=== PATIENT | female | born 2000 | race Caucasian/White ===

== ENCOUNTER 2021-02-27 21:48 | Emergency (ER) | payer OTHER, SELFPAY ==
--- NOTE | 2021-02-27 | ECG_ITS ---
Test Reason : CHEST PAIN Blood Pressure : / mmHG Vent. Rate : 080 BPM Atrial Rate : 080 BPM P-R Int : 154 ms QRS Dur : 078 ms QT Int : 366 ms P-R-T Axes : 050 016 008 degrees QTc Int : 422 ms Normal sinus rhythm Normal ECG No previous ECGs available Referred By: Generic ED Physician Electronically Signed By:RENA DREW
--- NOTE | ~2021-02-27 | XR_ITS ---
EXAMINATION: XR CHEST CLINICAL INFORMATION: Shortness of breath COMPARISON: None TECHNIQUE: Frontal view of the chest was obtained. FINDINGS: No significant abnormality is noted involving the heart, lungs, mediastinum, bony thorax or soft tissues. XR/XR chest 1V IMPRESSION: Unremarkable examination.
[2021-02-27 22:18] VITALS: BP 123/68; PULSE 83; RESP 18; TEMP 36.9; O2SAT 98; BMI 33.6
[2021-02-28 00:26] LABS: UPreg QC Valid YES; Urine Pregnancy NEGATIVE (NEGATIVE)
--- NOTE | 2021-02-28 00:32 | ED_ITS ---
HPI - URI/Sore Throat General Chief Complaint: Chest Pain Stated Complaint: SOB,CP, Covid+ Time Seen by Provider: 02/27/21 22:53 Source: patient Mode of arrival: ambulatory History of Present Illness HPI Narrative: This is a 20-year-old female with history of lupus and started on steroids 02/20 for a ?flare?. Patient now presents after developing ?COVID like symptoms on Tuesday? that included chest pain and shortness of breath, and then being evaluated at [facility] on Tuesday in found to be COVID-19 positive at that time. As per the patient lab work was done and patient was discharged from [facility] with personal oximeter and instructed to return to the emergency room if it was to fall below 94%. Patient states that she is unable to take NSAIDs due to her kidney function from lupus and that she has been consistently taking Tylenol for this chest pain/shortness of breath that she has been experiencing. Patient states that this has not changed in Tuesday and that the pain worsens with deep inspiration and movement. Patient states that today she checked her oximeter and that showed 93%, she became concerned and came into the emergency department. Related Data Allergies Allergy/AdvReac Type Severity Reaction Status Date / Time banana [BANANA] Allergy Intermediate ITCHING Unverified 08/07/20 16:38 tree nut [TREE NUT] Allergy Intermediate ITCHING Unverified 08/07/20 16:38 Review of Systems Review of Systems: Pertinent positives and negatives as stated in HPI 10 point review of systems is otherwise negative. PMFSH Past Medical History Source: nursing notes reviewed Social History Social History Advance Directives: No Advance Directives Information Provided: No Physical Exam Vital Signs: Vital Signs: Last Vital Signs Temp 98.4 F 02/27/21 22:18 Pulse 83 02/27/21 22:18 Resp 18 02/27/21 22:18 BP 123/68 02/27/21 22:18 Pulse Ox 98 02/27/21 22:18 Body Mass Index 33.6 VITAL SIGNS: Reviewed. GENERAL: Well developed, well nourished, in no acute distress. HEAD: Normocephalic/atraumatic, EYES: PERRLA, EOMI NOSE: Nares patent bilateral OROPHARYNX: no oral lesions noted, posterior pharynx clear NECK: Supple, no adenopathy LUNGS: Normal breath sounds. No adventitious sounds or accessory muscle use. SpO2<98> CARDIOVASCULAR: Regular rate and rhythm without noted murmurs ABDOMEN: Soft, non-tender, non-distended with bowel sounds. NEUROLOGIC: Alert and oriented x 4. Course Course Course Narrative: This is a 20-year-old female who is calm, without tachypnea or hypoxia (98%). Patient's symptoms have not changed since Tuesday and the presentation is consistent with COVID-19 symptoms with likely pleurisy. Will obtain chest x-ray to rule out pneumonia. Low clinical suspicion for PE and doubt cardiac etiology. The plan was discussed with the patient at bedside and she was reassured that it is possible that the initial reading that she got was erroneous. Through review of all investigations is without acute findings and patient continues to saturate within normal limits without evidence of tachypnea or hypoxia. Close informed by nursing at approximately 1:35 a.m. the patient patient had left. MDM - URI/Sore Throat Lab Data Labs: Lab Results 02/28/21 Range/Units 00:16 Urine Test NEGATIVE (NEGATIVE) Discharge Plan Discharge Clinical Impression: Lab test positive for detection of COVID-19 virus, Acute viral syndrome, Pleurisy Patient Disposition: Elopement Interventions: ED Discharge Assessment Last Done: 02/28/21 01:40 Discharge Date/Time: 02/28/21 01:40
== END 2021-02-28 01:40 | disposition left against medical advice (07) ==
PROVIDERS: Emergency Provider Student in an Organized Health Care Education/Training Program; PCP Pediatrics Adolescent Medicine
DX: B34.9 Viral infection, unspecified (principal); R06.02 Shortness of breath; R09.1 Pleurisy
CPT/HCPCS: 71045; 81025; 93005; 99283

== ENCOUNTER 2021-10-03 21:34 | Emergency (ER) | payer OTHER, SELFPAY ==
--- NOTE | ~2021-10-03 | US_ITS ---
EXAMINATION: ULTRASOUND OF THE PELVIS CLINICAL INFORMATION: Left lower quadrant and right lower quadrant pain. Vaginal bleeding.. COMPARISON: 05/27/2015. TECHNIQUE: Transabdominal and transvaginal pelvic ultrasound. Doppler evaluation with spectral analysis was performed. A transvaginal study was performed in addition to the transabdominal study which did not yield an adequate examination of the uterus and ovaries due to superimposed distended gas-filled loops of bowel. FINDINGS: The uterus is normal in size and appearance, measuring 7.4 x 3.6 x 6.3 cm longitudinally, anteroposteriorly and transversely. The endometrial stripe thickness is normal, measuring 0.4 cm in thickness. No focal myometrial mass is seen. The ovaries bilaterally are visualized and appear normal, with the right ovary measuring 2.5 x 1.5 x 2.1 cm and the left ovary measuring 2.3 x 0.9 x 1.9 cm. There are normal arterial and venous spectral waveforms bilaterally. No adnexal mass or free fluid collection seen. US/US pelvic and transvaginal IMPRESSION: No evidence of active ovarian torsion at this time. Normal pelvic ultrasound..
--- NOTE | ~2021-10-03 | US_ITS ---
EXAMINATION: ULTRASOUND OF THE PELVIS CLINICAL INFORMATION: Left lower quadrant and right lower quadrant pain. Vaginal bleeding.. COMPARISON: 05/27/2015. TECHNIQUE: Transabdominal and transvaginal pelvic ultrasound. Doppler evaluation with spectral analysis was performed. A transvaginal study was performed in addition to the transabdominal study which did not yield an adequate examination of the uterus and ovaries due to superimposed distended gas-filled loops of bowel. FINDINGS: The uterus is normal in size and appearance, measuring 7.4 x 3.6 x 6.3 cm longitudinally, anteroposteriorly and transversely. The endometrial stripe thickness is normal, measuring 0.4 cm in thickness. No focal myometrial mass is seen. The ovaries bilaterally are visualized and appear normal, with the right ovary measuring 2.5 x 1.5 x 2.1 cm and the left ovary measuring 2.3 x 0.9 x 1.9 cm. There are normal arterial and venous spectral waveforms bilaterally. No adnexal mass or free fluid collection seen. US/US pelvic ovarian doppler IMPRESSION: No evidence of active ovarian torsion at this time. Normal pelvic ultrasound..
[2021-10-03 21:36] VITALS: BP 128/73; PULSE 80; RESP 18; TEMP 36.1; O2SAT 99; BMI 33.6
--- NOTE | 2021-10-03 22:35 | ED.FEMALEGU ---
HPI - Female Genitourinary General Chief complaint: Vaginal Bleeding <JAYDEN Fragoso Last Filed: 10/04/21 01:38> Stated complaint: Vaginal Bleeding/Nausea <JAYDEN Fragoso Last Filed: 10/04/21 01:38> Time Seen by Provider: 10/03/21 22:35 <JAYDEN Fragoso Last Filed: 10/04/21 01:38> Source: patient <JAYDEN Fragoso Last Filed: 10/04/21 01:38> Mode of arrival: ambulatory <JAYDEN Fragoso Last Filed: 10/04/21 01:38> Limitations: no limitations <JAYDEN Fragoso Last Filed: 10/04/21 01:38> History of Present Illness HPI Narrative: 21-year-old female no known medical history presents to the emergency department with heavy vaginal bleeding, lower back pain, nausea and lower abdominal cramping that started at 3:00 a.m. today. Patient states that she is passing thick dark black clots, and tissue . Patient also mentions that she is having vaginal discharge, that is thick and gooey and has a foul odor. She states she has used 10 pads today. She complains of lower abdominal cramping that is constant and severe in nature. She also reports associated nausea. She is on an oral contraceptive. She does not believe that she is at this time, however she is sexually active and doesn't wear protection. Her last menstrual period was on September 12, 2021, she states she has regular periods and she is expecting her period or October 13, 2021. Patient denies difficulty with urination, fevers, chills, vomiting, diarrhea or, chest pain, shortness of breath, recent sick contacts. <JAYDEN Fragoso Last Filed: 10/04/21 01:38> MD elicited complaint: vaginal bleeding (thick dark red clots) and vaginal discharge ( gooey foul smelling) <JAYDEN Fragoso Last Filed: 10/04/21 01:38> Onset (ago): day(s) (1) <JAYDEN Fragoso Last Filed: 10/04/21 01:38> Location of symptoms: suprapubic, LLQ and RLQ <JAYDEN Fragoso - Last Filed: 10/04/21 01:38> Severity: severe <JAYDEN Fragoso - Last Filed: 10/04/21 01:38> Severity scale (1-10): 10 <JAYDEN Fragoso - Last Filed: 10/04/21 01:38> Quality of pain: cramping <JAYDEN Fragoso - Last Filed: 10/04/21 01:38> Consistency: constant <JAYDEN Fragoso - Last Filed: 10/04/21 01:38> Vaginal discharge: yellow, creamy and vaginal odor <JAYDEN Fragoso - Last Filed: 10/04/21 01:38> Vaginal bleeding: heavy, dark red, clots and # pads per day (10) <JAYDEN Fragoso - Last Filed: 10/04/21 01:38> Urinary symptoms: Flank Pain (bilateral) <JAYDEN Fragoso - Last Filed: 10/04/21 01:38> Exacerbating factors: none <JAYDEN Fragoso - Last Filed: 10/04/21 01:38> Relieving factors: none <JAYDEN Fragoso - Last Filed: 10/04/21 01:38> Associated symptoms: abdominal pain (RLQ,LLQ CRAMPING ) and back pain (bilateral flank) <JAYDEN Fragoso - Last Filed: 10/04/21 01:38> Treatment prior to arrival: none <JAYDEN Fragoso - Last Filed: 10/04/21 01:38> Sexual activity: Yes <JAYDEN Fragoso - Last Filed: 10/04/21 01:38> Possible : unsure if <JAYDEN Fragoso - Last Filed: 10/04/21 01:38> Date of Last Menstrual Period: 09/12/21 <JAYDEN Fragoso - Last Filed: 10/04/21 01:38> Related Data : 1 <JAYDEN Fragoso Last Filed: 10/04/21 01:38> Para: 1 <JAYDEN Fragoso Last Filed: 10/04/21 01:38> Total number of abortions (spontaneous and elective): 0 <JAYDEN Fragoso Last Filed: 10/04/21 01:38> Home medications: Previous Rx's Medication Instructions Recorded ondansetron 4 mg disintegrating 4 mg PO Q8-12H PRN #7 tab 10/04/21 tablet <JAYDEN Fragoso Last Filed: 10/04/21 01:38> Allergies/Adverse reactions: Allergies Allergy/AdvReac Type Severity Reaction Status Date / Time banana [BANANA] Allergy Intermediate ITCHING Unverified 08/07/20 16:38 tree nut [TREE NUT] Allergy Intermediate ITCHING Unverified 08/07/20 16:38 <JAYDEN Fragoso Last Filed: 10/04/21 01:38> Review of Systems Review of Systems: Constitutional : No Fever, No Chills ENT/Mouth : No sore throat, No Rhinorrhea Eyes: No Eye Pain, No Redness Cardiovascular : No Chest Pain, No SOB Respiratory : No Cough, No Sputum, No Wheezing Gastrointestinal : positive Nausea, No Vomiting, No Diarrhea, positive abdominal pain, Genitourinary : positive irregular bleeding, No Dysuria, No Urinary Frequency, + pelvic pain Musculoskeletal : No Myalgias Skin : No rash Neuro : No Weakness, No Headache Psych : No Anxiety/Panic, No Depression Heme/Lymph: No bruising, No Lymphadenopathy Endocrine : No Polyuria, No Polydipsia All other systems reviewed and are negative <JAYDEN Fragoso Last Filed: 10/04/21 01:38> FOR[facility]LY [facility], [facility] Past Medical History Attestation statement: The following information was validated with the patient. <JAYDEN Fragoso Last Filed: 10/04/21 01:38> Source: old records reviewed and nursing notes reviewed <JAYDEN Fragoso Last Filed: 10/04/21 01:38> : 1 <JAYDEN Fragoso Last Filed: 10/04/21 01:38> Para: 1 <JAYDEN Fragoso - Last Filed: 10/04/21 01:38> Total number of abortions (spontaneous and elective): 0 <JAYDEN Fragoso - Last Filed: 10/04/21 01:38> Date of Last Menstrual Period: 09/12/21 <JAYDEN Fragoso - Last Filed: 10/04/21 01:38> Social History Social History: Social History Advance Directives: No Advance Directives Information Provided: No <JAYDEN Fragoso - Last Filed: 10/04/21 01:38> Physical Exam Vital Signs: Vital Signs: Last Vital Signs Temp 97.8 F 10/03/21 23:05 Pulse 71 10/03/21 23:05 Resp 14 10/03/21 23:05 BP 120/78 10/03/21 23:05 Pulse Ox 99 10/03/21 23:05 Body Mass Index 33.6 <JAYDEN Fragoso - Last Filed: 10/04/21 01:38> Vital Signs: Last Vital Signs Temp 97.8 F 10/03/21 23:05 Pulse 71 10/03/21 23:05 Resp 14 10/03/21 23:05 BP 120/78 10/03/21 23:05 Pulse Ox 99 10/03/21 23:05 Body Mass Index 33.6 <JAYDEN Benítez - Last Filed: 10/04/21 01:48> Appearance: Alert.? Oriented X3.? No acute distress.? Eyes: Pupils equal, round and reactive to light.? ENT: Pharynx normal.? Neck: Normal inspection.? Neck supple.? CVS: Normal heart rate and rhythm.? Pulses normal.? Respiratory: No respiratory distress.? Breath sounds normal.? Abdomen: Soft and + tenderness to RLQ,LLQ and suprapubic region.? Pelvic: + significant dark red bleeding with clots coming from the cervical os, cervical os appears closed. Severe discomfort with pelvic exam. Bimanual exam reveals significant bilateral adnexal tenderness. Skin: Skin warm and dry.? Normal skin color.? Normal skin turgor.? Extremities: No lower extremity edema.? No calf ttp Neuro: Oriented X 3.? No motor deficit.? No sensory deficit. <JAYDEN Fragoso - Last Filed: 10/04/21 01:38> Course Course Course Narrative: Patient seen and examined, agree with assessment and plan. <JAYDEN Benítez - Last Filed: 10/04/21 01:48> Reevaluation(s) Reevaluation #1: A pelvic exam was done with adal Berger at the bedside as a field account manager. There was significant dark red bleeding with clots coming from the cervical os, cervical os appears closed. Severe discomfort with pelvic exam. Bimanual exam reveals significant bilateral adnexal tenderness. <JAYDEN Fragoso - Last Filed: 10/04/21 01:38> Time: 23:47 <JAYDEN Fragoso - Last Filed: 10/04/21 01:38> Reevaluation #2: Labs show no acute infection, hemoglobin and hematocrit within normal limits, platelets are noted to be slightly elevated 412. Serum hCG negative, no electrolyte abnormalities. UA with no infection. Trichomonas and yeast negative <JAYDEN Fragoso - Last Filed: 10/04/21 01:38> Time: 01:28 <JAYDEN Fragoso - Last Filed: 10/04/21 01:38> Reevaluation #3: US negative. This is likely early menses, menorrhagia. Will repeat a CBC to make sure her hemoglobin and hematocrit are stable prior to discharging patient home. <JAYDEN Fragoso - Last Filed: 10/04/21 01:38> Time: 01:29 <JAYDEN Fragoso - Last Filed: 10/04/21 01:38> Additional Reevaluation(s): 0237 Sign-out will be given to Dr. Molina pending CBC and coags <JAYDEN Fragoso - Last Filed: 10/04/21 01:38> MDM - Female Genitourinary MDM Narrative Medical decision making narrative: 2229 21-year-old female no known pmhx presents to the ED with heavy vaginal bleeding dark red clots, vaginal discharge thick yellow creamy foul smelling, bilateral flank pain, nausea and severe lower abdominal cramping that started at 3:00 a.m. today. She has gone through 10 pads today. She does not believe she is , she states she is on oral contraceptives, however, she is sexually active and does not use protection. No history of STDs. Denies fevers, chills, weakness, difficulties with urination, anorexia. Upon physical examination patient is resting comfortably in the stretcher in no acute distress. S1-S2 appreciated free of murmurs. Lungs are clear bilaterally. Abdomen is soft, nondistended, and tender to palpation in the right lower quadrant, right left lower quadrant and suprapubic region. No focal neuro deficits. A pelvic exam will be done. Plan at this time obtain basic labs, UA, U-perg, mag, HCG, NG CT, BV, trich. <JAYDEN Fragoso - Last Filed: 10/04/21 01:38> Lab Data Result diagrams: : 10/03/21 23:23 10/03/21 23:58 <JAYDEN Fragoso - Last Filed: 10/04/21 01:38> Labs: Lab Results 10/03/21 10/03/21 10/03/21 Range/Units 23:23 23:58 23:58 WBC 11.1 H (4.8-10.8) X10*3/uL RBC 4.82 (4.20-5.50) X10*6/uL Hgb 13.6 (12.0-16.0) g/dl Hct 40.0 (37.0-47.0) % MCV 83.0 (80.0-98.0) fL MCH 28.2 (27.0-33.0) pg MCHC 34.0 (31.0-35.0) g/dl RDW 13.7 (11.0-16.0) % Plt Count 412 H (160-400) X10*3/uL MPV 10.1 (9.4-12.3) fL Immature Gran % (Auto) 0.4 (0.0-0.4) % Neut % (Auto) 56.3 (45-73) % Lymph % (Auto) 34.5 (20-40) % [place] % (Auto) 6.6 (2-11) % Eos % (Auto) 1.7 (0-4) % Baso % (Auto) 0.5 (0-2) % Lymph # (Auto) 3.8 (1.2-4.9) X10*3/uL [place] # (Auto) 0.7 (0.1-1.2) X10*3/uL Eos # (Auto) 0.2 (0.0-0.4) X10*3/uL Baso # (Auto) 0.1 (0.0-0.2) X10*3/uL Abs Immat Gran (auto) 0.04 H (0.00-0.03) X10*3/uL Absolute Neuts (auto) 6.3 (2.0-8.3) x10*3/uL Absolute Nucleated RBC 0.000 (0.0-0.012) X10*3/uL Nucleated RBC % (auto) 0.0 (0.0-0.2) /100WBC Sodium 137 (135-145) mmol/L Potassium 4.4 (3.3-5.1) mmol/L Chloride 109 H (96-108) mmol/L Carbon Dioxide 19 L (22-29) mmol/L Anion Gap 13 (12-20) BUN 17 H (9-16) mg/dL Creatinine 0.83 (0.5-1.4) mg/dL Estim Creat Clear Calc 109.7 Estimated GFR > 60 Random Glucose 87 (60-115) mg/dL Calcium 9.6 (8.4-10.2) mg/dL Magnesium 1.9 (1.6-2.6) mg/dL Total Bilirubin 0.2 (0.0-1.0) mg/dL AST 25 (5-31) U/L ALT 14 (0-31) U/L Alkaline Phosphatase 100 (39-117) U/L Total Protein 7.5 (6.5-8.0) g/dL Albumin 4.4 (3.5-5.0) g/dL Beta HCG, Quant < 2 mIU/mL Urine Color YELLOW Urine Appearance CLEAR Urine pH 6.0 (5.0-8.0) Ur Specific [place] >= 1.030 H (1.005-1.025) Urine Protein 1+ H (NEG-TRACE) MG/DL Urine Glucose (UA) NEG (NEG) MG/DL Urine Ketones NEG (NEG) MG/DL Urine Blood 2+ H (NEG) Urine Nitrite NEG (NEG) Ur Leukocyte Esterase NEG (NEG) Urine RBC 15-29 H (0) /HPF Urine WBC 1-4 (0-4) /HPF Ur Squamous Epith Cells 1+ /LPF Urine Bacteria 1+ /LPF Urine Test (NEGATIVE) Blood Type 10/03/21 10/04/21 Range/Units 23:58 00:24 WBC (4.8-10.8) X10*3/uL RBC (4.20-5.50) X10*6/uL Hgb (12.0-16.0) g/dl Hct (37.0-47.0) % MCV (80.0-98.0) fL MCH (27.0-33.0) pg MCHC (31.0-35.0) g/dl RDW (11.0-16.0) % Plt Count (160-400) X10*3/uL MPV (9.4-12.3) fL Immature Gran % (Auto) (0.0-0.4) % Neut % (Auto) (45-73) % Lymph % (Auto) (20-40) % [place] % (Auto) (2-11) % Eos % (Auto) (0-4) % Baso % (Auto) (0-2) % Lymph # (Auto) (1.2-4.9) X10*3/uL [place] # (Auto) (0.1-1.2) X10*3/uL Eos # (Auto) (0.0-0.4) X10*3/uL Baso # (Auto) (0.0-0.2) X10*3/uL Abs Immat Gran (auto) (0.00-0.03) X10*3/uL Absolute Neuts (auto) (2.0-8.3) x10*3/uL Absolute Nucleated RBC (0.0-0.012) X10*3/uL Nucleated RBC % (auto) (0.0-0.2) /100WBC Sodium (135-145) mmol/L Potassium (3.3-5.1) mmol/L Chloride (96-108) mmol/L Carbon Dioxide (22-29) mmol/L Anion Gap (12-20) BUN (9-16) mg/dL Creatinine (0.5-1.4) mg/dL Estim Creat Clear Calc Estimated GFR Random Glucose (60-115) mg/dL Calcium (8.4-10.2) mg/dL Magnesium (1.6-2.6) mg/dL Total Bilirubin (0.0-1.0) mg/dL AST (5-31) U/L ALT (0-31) U/L Alkaline Phosphatase (39-117) U/L Total Protein (6.5-8.0) g/dL Albumin (3.5-5.0) g/dL Beta HCG, Quant mIU/mL Urine Color Urine Appearance Urine pH (5.0-8.0) Ur Specific [place] (1.005-1.025) Urine Protein (NEG-TRACE) MG/DL Urine Glucose (UA) (NEG) MG/DL Urine Ketones (NEG) MG/DL Urine Blood (NEG) Urine Nitrite (NEG) Ur Leukocyte Esterase (NEG) Urine RBC (0) /HPF Urine WBC (0-4) /HPF Ur Squamous Epith Cells /LPF Urine Bacteria /LPF Urine Test NEGATIVE (NEGATIVE) Blood Type A Positive <JAYDEN Fragoso - Last Filed: 10/04/21 01:38> Lab Results 10/03/21 10/03/21 10/03/21 Range/Units 23:23 23:58 23:58 WBC 11.1 H (4.8-10.8) X10*3/uL RBC 4.82 (4.20-5.50) X10*6/uL Hgb 13.6 (12.0-16.0) g/dl Hct 40.0 (37.0-47.0) % MCV 83.0 (80.0-98.0) fL MCH 28.2 (27.0-33.0) pg MCHC 34.0 (31.0-35.0) g/dl RDW 13.7 (11.0-16.0) % Plt Count 412 H (160-400) X10*3/uL MPV 10.1 (9.4-12.3) fL Immature Gran % (Auto) 0.4 (0.0-0.4) % Neut % (Auto) 56.3 (45-73) % Lymph % (Auto) 34.5 (20-40) % [place] % (Auto) 6.6 (2-11) % Eos % (Auto) 1.7 (0-4) % Baso % (Auto) 0.5 (0-2) % Lymph # (Auto) 3.8 (1.2-4.9) X10*3/uL [place] # (Auto) 0.7 (0.1-1.2) X10*3/uL Eos # (Auto) 0.2 (0.0-0.4) X10*3/uL Baso # (Auto) 0.1 (0.0-0.2) X10*3/uL Abs Immat Gran (auto) 0.04 H (0.00-0.03) X10*3/uL Absolute Neuts (auto) 6.3 (2.0-8.3) x10*3/uL Absolute Nucleated RBC 0.000 (0.0-0.012) X10*3/uL Nucleated RBC % (auto) 0.0 (0.0-0.2) /100WBC Sodium 137 (135-145) mmol/L Potassium 4.4 (3.3-5.1) mmol/L Chloride 109 H (96-108) mmol/L Carbon Dioxide 19 L (22-29) mmol/L Anion Gap 13 (12-20) BUN 17 H (9-16) mg/dL Creatinine 0.83 (0.5-1.4) mg/dL Estim Creat Clear Calc 109.7 Estimated GFR > 60 Random Glucose 87 (60-115) mg/dL Calcium 9.6 (8.4-10.2) mg/dL Magnesium 1.9 (1.6-2.6) mg/dL Total Bilirubin 0.2 (0.0-1.0) mg/dL AST 25 (5-31) U/L ALT 14 (0-31) U/L Alkaline Phosphatase 100 (39-117) U/L Total Protein 7.5 (6.5-8.0) g/dL Albumin 4.4 (3.5-5.0) g/dL Beta HCG, Quant < 2 mIU/mL Urine Color YELLOW Urine Appearance CLEAR Urine pH 6.0 (5.0-8.0) Ur Specific [place] >= 1.030 H (1.005-1.025) Urine Protein 1+ H (NEG-TRACE) MG/DL Urine Glucose (UA) NEG (NEG) MG/DL Urine Ketones NEG (NEG) MG/DL Urine Blood 2+ H (NEG) Urine Nitrite NEG (NEG) Ur Leukocyte Esterase NEG (NEG) Urine RBC 15-29 H (0) /HPF Urine WBC 1-4 (0-4) /HPF Ur Squamous Epith Cells 1+ /LPF Urine Bacteria 1+ /LPF Urine Test (NEGATIVE) Blood Type 10/03/21 10/04/21 Range/Units 23:58 00:24 WBC (4.8-10.8) X10*3/uL RBC (4.20-5.50) X10*6/uL Hgb (12.0-16.0) g/dl Hct (37.0-47.0) % MCV (80.0-98.0) fL MCH (27.0-33.0) pg MCHC (31.0-35.0) g/dl RDW (11.0-16.0) % Plt Count (160-400) X10*3/uL MPV (9.4-12.3) fL Immature Gran % (Auto) (0.0-0.4) % Neut % (Auto) (45-73) % Lymph % (Auto) (20-40) % [place] % (Auto) (2-11) % Eos % (Auto) (0-4) % Baso % (Auto) (0-2) % Lymph # (Auto) (1.2-4.9) X10*3/uL [place] # (Auto) (0.1-1.2) X10*3/uL Eos # (Auto) (0.0-0.4) X10*3/uL Baso # (Auto) (0.0-0.2) X10*3/uL Abs Immat Gran (auto) (0.00-0.03) X10*3/uL Absolute Neuts (auto) (2.0-8.3) x10*3/uL Absolute Nucleated RBC (0.0-0.012) X10*3/uL Nucleated RBC % (auto) (0.0-0.2) /100WBC Sodium (135-145) mmol/L Potassium (3.3-5.1) mmol/L Chloride (96-108) mmol/L Carbon Dioxide (22-29) mmol/L Anion Gap (12-20) BUN (9-16) mg/dL Creatinine (0.5-1.4) mg/dL Estim Creat Clear Calc Estimated GFR Random Glucose (60-115) mg/dL Calcium (8.4-10.2) mg/dL Magnesium (1.6-2.6) mg/dL Total Bilirubin (0.0-1.0) mg/dL AST (5-31) U/L ALT (0-31) U/L Alkaline Phosphatase (39-117) U/L Total Protein (6.5-8.0) g/dL Albumin (3.5-5.0) g/dL Beta HCG, Quant mIU/mL Urine Color Urine Appearance Urine pH (5.0-8.0) Ur Specific [place] (1.005-1.025) Urine Protein (NEG-TRACE) MG/DL Urine Glucose (UA) (NEG) MG/DL Urine Ketones (NEG) MG/DL Urine Blood (NEG) Urine Nitrite (NEG) Ur Leukocyte Esterase (NEG) Urine RBC (0) /HPF Urine WBC (0-4) /HPF Ur Squamous Epith Cells /LPF Urine Bacteria /LPF Urine Test NEGATIVE (NEGATIVE) Blood Type A Positive <JAYDEN Benítez - Last Filed: 10/04/21 01:48> Critical Care Time Critical Care Time Critical Care Time: Yes <JAYDEN Fragoso - Last Filed: 10/04/21 01:38> Total Critical Care Time: 36 <JAYDEN Fragoso Last Filed: 10/04/21 01:38> Attestation: I attest to this time spent taking care of the patient, pelvic exam, chart review, <JAYDEN Fragoso Last Filed: 10/04/21 01:38> Discharge Plan Discharge Clinical Impression: Vaginal bleeding, Menorrhagia <JAYDEN Fragoso Last Filed: 10/04/21 01:38> Patient Disposition: Home, Self-Care <JAYDEN Fragoso - Last Filed: 10/04/21 01:38> Instructions: Menorrhagia (ED) <JAYDEN Fragoso - Last Filed: 10/04/21 01:38> Additional Instructions: Follow-up with your primary care provider this week and OBGYN as soon as possible Return to the emergency department with new or worsening symptoms. Such as shortness of breath, chest pain, worsening pain, fevers, chills, nausea, vomiting or worse bleeding Also return to the emergency department if he were going through more than 1 pad per hour. In case of emergency call 911 <JAYDEN Fragoso Last Filed: 10/04/21 01:38> Prescriptions: New ondansetron 4 mg tablet,disintegrating 4 mg PO Q8-12H PRN (Reason: nausea and vomiting) Qty: 7 RF: 0 <JAYDEN Fragoso Last Filed: 10/04/21 01:38> Referrals: Yomaira Martins MD [Primary Care Provider] - 2 days <JAYDEN Fragoso - Last Filed: 10/04/21 01:38> Stand Alone Forms: Work/School Release <JAYDEN Fragoso - Last Filed: 10/04/21 01:38>
[2021-10-03 23:05] VITALS: BP 120/78; PULSE 71; RESP 14; TEMP 36.6; O2SAT 99
[2021-10-03] MEDS: Ondansetron ODT 4 MG TAB.RAPDIS TRANSLINGU (23:26)
[2021-10-03 23:34] LABS: MANUAL DIFF FLAG NO
[2021-10-03 23:35] LABS: Basophils Absolute Auto 0.1 X10*3/uL (0.0-0.2); Basophils Percent Auto 0.5 % (0-2); Eosinophils Absolute Auto 0.2 X10*3/uL (0.0-0.4); Eosinophils Percent Auto 1.7 % (0-4); Hemoglobin 13.6 g/dl (12.0-16.0); Imm Gran Abs Auto 0.04 X10*3/uL (0.00-0.03); Imm Gran Pct Auto 0.4 % (0.0-0.4); Lymphocytes Absolute Auto 3.8 X10*3/uL (1.2-4.9); Lymphocytes Percent Auto 34.5 % (20-40); Mean Corpuscular Hemoglobin 28.2 pg (27.0-33.0); Mean Platelet Volume 10.1 fL (9.4-12.3); Monocytes Absolute Auto 0.7 X10*3/uL (0.1-1.2); Monocytes Percent Auto 6.6 % (2-11); Neutrophils Absolute Auto 6.3 x10*3/uL (2.0-8.3); Neutrophils Percent Auto 56.3 % (45-73); Platelet Count 412 X10*3/uL (160-400); Red Blood Count 4.82 X10*6/uL (4.20-5.50); Red Cell Distribution Width 13.7 % (11.0-16.0); White Blood Count 11.1 X10*3/uL (4.8-10.8)
[2021-10-04 00:13] LABS: Appearance Urine CLEAR; Color Urine YELLOW; Glucose Urine UA NEG (NEG); Leukocyte Esterase Urine NEG (NEG); Nitrite Urine NEG (NEG); Specific Gravity - Urine >= 1.030 (1.005-1.025); UACC Culture Trigger NO; Urine Blood 2+ (NEG); Urine Ketones NEG (NEG); Urine Protein 1+ MG/DL (NEG-TRACE)
[2021-10-04 00:18] LABS: UPreg QC Valid YES; Urine Pregnancy NEGATIVE (NEGATIVE)
[2021-10-04 00:22] LABS: Bacteria Urine 1+ /LPF; Squamous Epithelial Cell Urine 1+ /LPF
[2021-10-04 00:58] LABS: Alanine Aminotransferase 14 U/L (0-31); Albumin Level 4.4 g/dL (3.5-5.0); Alkaline Phosphatase 100 U/L (39-117); Anion Gap 13 (12-20); Aspartate Amino Transferase 25 U/L (5-31); Bilirubin Total 0.2 mg/dL (0.0-1.0); Blood Urea Nitrogen 17 mg/dL (9-16); Calcium 9.6 mg/dL (8.4-10.2); Carbon Dioxide 19 mmol/L (22-29); Chloride 109 mmol/L (96-108); Creatinine Clr Calc Pharmacy 109.7; Estimated Glomerular Filt Rate > 60; Glucose Random 87 mg/dL (60-115); Magnesium 1.9 mg/dL (1.6-2.6); Potassium 4.4 mmol/L (3.3-5.1); Sodium 137 mmol/L (135-145); Total Protein 7.5 g/dL (6.5-8.0)
[2021-10-04 01:04] LABS: HCG Quantitative < 2 mIU/mL
[2021-10-04 01:51] LABS: MANUAL DIFF FLAG NO
[2021-10-04] MEDS: Acetaminophen 325 MG TABLET 650 MG PO (01:56)
[2021-10-04 02:12] LABS: Basophils Absolute Auto 0.1 X10*3/uL (0.0-0.2); Basophils Percent Auto 0.4 % (0-2); Eosinophils Absolute Auto 0.2 X10*3/uL (0.0-0.4); Eosinophils Percent Auto 1.8 % (0-4); Hematocrit 37.6 % (37.0-47.0); Hemoglobin 12.7 g/dl (12.0-16.0); Imm Gran Abs Auto 0.04 X10*3/uL (0.00-0.03); Imm Gran Pct Auto 0.4 % (0.0-0.4); Lymphocytes Absolute Auto 3.7 X10*3/uL (1.2-4.9); Lymphocytes Percent Auto 32.3 % (20-40); Mean Corpuscular HGB Conc 33.8 g/dl (31.0-35.0); Mean Corpuscular Hemoglobin 28.2 pg (27.0-33.0); Mean Corpuscular Volume 83.6 fL (80.0-98.0); Mean Platelet Volume 9.9 fL (9.4-12.3); Monocytes Absolute Auto 0.8 X10*3/uL (0.1-1.2); Monocytes Percent Auto 6.9 % (2-11); Neutrophils Absolute Auto 6.6 x10*3/uL (2.0-8.3); Neutrophils Percent Auto 58.2 % (45-73); Platelet Count 401 X10*3/uL (160-400); Red Cell Distribution Width 13.8 % (11.0-16.0); White Blood Count 11.4 X10*3/uL (4.8-10.8)
[2021-10-04 02:33] LABS: Partial Thromboplastin Time 39.3 SEC (24.1-38.0)
[2021-10-04 09:10] LABS: CT PCR NOT DETECTED (Not Detect.); NG PCR NOT DETECTED (Not Detect.)
[2021-10-04 10:45] LABS: BV Int Neg Control Negative (Negative); BV Int Pos Control Positive (Positive)
== END 2021-10-04 02:41 | disposition home or self-care (01) ==
PROVIDERS: Physician Assistant; Emergency Provider Internal Medicine; PCP Internal Medicine
DX: N92.0 Excessive and frequent menstruation with regular cycle (principal); N89.8 Other specified noninflammatory disorders of vagina; R10.32 Left lower quadrant pain; M54.50 Low back pain, unspecified; R10.2 Pelvic and perineal pain; Z79.899 Other long term (current) drug therapy
CPT/HCPCS: 36415; 76830; 76856; 80053; 81001; 81025; 83735; 84702; 85025; 85610; 85730; 86900; 86901; 87480; 87491; 87510; 87591; 87660; 93975; 99284; 99291

== ENCOUNTER 2022-05-04 18:50 | Emergency (ER) | payer OTHER, SELFPAY ==
[2022-05-04 19:01] VITALS: BP 125/76; BP 125/81; PULSE 76; PULSE 80; RESP 18; TEMP 37.3; O2SAT 100; O2SAT 99; BMI 32.9
--- NOTE | 2022-05-04 19:29 | ED_ITS ---
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 Patient reports she just picked up a new used couch, took now on and on right side and woke up with right eye swollen shut, itchiness, & SOB. Patient admits to taking Zyrtec and 25 mg of p.o. Benadryl at home, was also given 50 mg of IV Benadryl by EMS with symptomatic improvement. Reports mild discharge/blurry vision to bilateral eyes worse to right. Denies throat closing sensation, coughing, wheezing, rash/hives MD complaint: allergic reaction and facial swelling Onset (ago): hour(s) Exposure: other Symptoms: itching Related Data Previous Rx's Medication Instructions Recorded ondansetron 4 mg disintegrating 4 mg PO Q8-12H PRN nausea and 10/04/21 tablet vomiting #7 tabs diphenhydramine HCl 25 mg capsule 25 mg PO TID PRN allergic reaction 05/04/22 (Benadryl) #14 caps polymyxin B sulfate 10,000 1 drp ophthalmic (eye) Q3H 7 days 05/04/22 unit-trimethoprim 1 mg/mL eye #10 mL drops (Polytrim) prednisone 20 mg tablet 40 mg PO DAILY 4 days #8 tabs 05/04/22 Allergies Allergy/AdvReac Type Severity Reaction Status Date / Time banana [BANANA] Allergy Intermediate ITCHING Unverified 08/07/20 16:38 tree nut [TREE NUT] Allergy Intermediate Hives Unverified 05/04/22 19:06 cat dander Allergy Difficulty Verified 05/04/22 19:06 Breathing grape Allergy Itching Verified 05/04/22 19:06 latex Allergy Hives Verified 05/04/22 19:06 strawberry Allergy Itching Verified 05/04/22 19:06 metoclopramide [From Reglan] AdvReac Anxiety Verified 05/04/22 19:06 NSAIDS (Non-Steroidal AdvReac Unknown Verified 05/04/22 19:06 Anti-Inflamma Review of Systems Review of Systems: Constitutional: No Fever, No Chills, No Fatigue, No Malaise ENT/Mouth: No Ear Pain, No Nasal Congestion, No Sinus Pain, No Hoarseness, No sore throat, No Rhinorrhea, No Swallowing Difficulty Eyes: No Eye Pain, + Swelling, No Redness, No Foreign Body, + Discharge, + Vision Changes Cardiovascular: No Chest Pain, + SOB (resolved), No Dyspnea on Exertion Respiratory: No Cough, No Sputum, No Wheezing, No Dyspnea Gastrointestinal: No Nausea, No Vomiting, No Diarrhea, No Constipation, No Abdominal pain Genitourinary: No Dysuria, No Urinary Frequency, No Hematuria, No Flank Pain Musculoskeletal: No joint pain, No Myalgias, No Joint Swelling Skin: No Skin Lesions, No rash Neuro: No Weakness, No Headache Yes all other systems are reviewed and are negative [facility] Past Medical History Attestation statement: The following information was validated with the patient. Social History Social History Advance Directives: No Advance Directives Information Provided: No Patient : No Physical Exam ED Vital Signs: Vital Signs - 24 hr 05/04/22 19:01 Temperature 99.1 F Pulse Rate 80 Respiratory Rate 18 Blood Pressure 125/76 Pulse Oximetry 99 Oxygen Delivery Method Room Air BMI result Body Mass Index 32.9 Const General: cooperative, healthy appearing, no acute distress, alert and awake; No lethargic Orientation/consciousness: patient oriented x3 and No lethargic Limitations: no limitations HENMT Head: Yes normal to inspection and Yes atraumatic Ears: hearing grossly normal bilaterally General nose exam: Normal external nose present Mouth: Normal oral and palatal mucosa present, tongue normal, no audible dysphonia and no drooling Throat: Yes posterior oropharynx normal, Yes tonsils normal, Yes uvula midline, No peritonsillar mass, No uvula laterally displaced and No uvular edema Eyes Other: +clear and white drainage from right eye. +conjunctival injection Fluorescein staining used to bilateral eyes without uptake. No evidence of periorbital/orbital cellulitis General: appearance normal, both eyes and all related structures Alignment and Position: alignment normal Periorbital: periorbital findings abnormal right periorbital swelling; no erythe ma, no ecchymosis and no crepitus Conjunctivae: conjunctival abnormal Sclerae: sclerae normal Corneas: corneas normal Pupils: Equal, round and reactive pupils present EOM: EOMs intact bilaterally Direct Ophthalmoscopy: normal light reflex and no photophobia Neck Neck: Yes normal visual inspection, Yes no meningeal signs, Yes supple and No anterior neck swelling Resp Effort & Inspection: normal respiratory effort, no grunting, not labored, no nasal flaring, no respiratory distress and no stridor Auscultation: clear to auscultation bilaterally, no crackles, no rales, no rhonchi and no wheezes Cardio Rate: regular rate Heart sounds: S1 normal heart sound present and S2 normal heart sound present Skin Rashes: no rashes Wounds: no wounds Neuro General: patient oriented x3, tone normal and no meningeal signs Cranial nerves: Yes Equal, round and reactive pupils present Gait exam (Neuro): Normal gait present Extrem General: Yes normal to inspection MDM - Allergic Reaction MDM Narrative Medical decision making narrative: 21-year-old female with no significant past medical history presenting to the ED complaining of allergic reaction to cat dander from [facility] ([place]) 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 On exam vital signs stable, NAD, nontoxic appearing, no respiratory distress, talking in complete sentences, no evidence of intraoral swelling, lungs CTA. Right-sided periorbital swelling noted with conjunctival injection and slight drainage. No fluorescein uptake Plan: PO prednisone, pepcid Differential Diagnosis Differential diagnosis: Likely contact dermatitis Medical Records Attestation: I reviewed the patient's medical records. Lab Data Attestation: I reviewed the patient's lab results. Discharge Plan Discharge Clinical Impression: Allergic reaction, Conjunctivitis Patient Disposition: Home, Self-Care Instructions: General Allergic Reaction (ED), Conjunctivitis (ED) Additional Instructions: You had an allergic reaction, continue to Take Benadryl at home as needed for allergy symptoms every 6 hours. Take prednisone daily as prescribed. Instill Polytrim drops into Right eye for conjunctivitis. Avoid touching/rubbing both eyes. Clean right eye with warm cloth. If symptoms persist or worsen, your fever, shortness of breath, wheezing, throat closing sensation or cough please return to the emergency department Prescriptions: New polymyxin B sulf-trimethoprim [Polytrim] 10,000 unit- 1 mg/mL drops 1 drp ophthalmic (eye) Q3H 7 Days Qty: 10 0RF Rx Instructions: while awake; do not exceed 6 doses in 24 hours diphenhydramine HCl [Benadryl] 25 mg capsule 25 mg PO TID PRN (Reason: allergic reaction) Qty: 14 0RF prednisone 20 mg tablet 40 mg PO DAILY 4 Days Qty: 8 0RF No Action ondansetron 4 mg tablet,disintegrating 4 mg PO Q8-12H PRN (Reason: nausea and vomiting) Qty: 7 0RF Referrals: Yomaira Martins MD [Primary Care Provider] - 5 days
[2022-05-04] MEDS: Fluorescein Sodium STRIP 2 STRIP EYE-BOTH (20:07)
[2022-05-04] MEDS: Tetracaine HCl/PF 0.5% Oph Sol 4 ML DROPS 3 DROP EYE-BOTH (20:07)
[2022-05-04] MEDS: Famotidine/PF 20 MG/2 ML VIAL IVPUSH (20:07)
[2022-05-04] MEDS: predniSONE 20 MG TABLET 40 MG PO (20:07)
[2022-05-04 20:09] VITALS: BP 110/75; PULSE 70; RESP 16; O2SAT 99
--- NOTE | 2022-05-04 20:09 | PC.NURSE ---
right eye swelling improved. patient now able to open eye half way
== END 2022-05-04 20:28 | disposition home or self-care (01) ==
PROVIDERS: Emergency Provider Internal Medicine; PCP Internal Medicine
DX: J30.81 Allergic rhinitis due to animal (cat) (dog) hair and dander (principal); H10.9 Unspecified conjunctivitis
CPT/HCPCS: 96374; 99283; 99284

== ENCOUNTER 2022-06-07 17:01 | Emergency (ER) | payer OTHER, SELFPAY ==
--- NOTE | 2022-06-07 17:26 | ED.NEUROSD ---
HPI - Neuro Symptoms/Deficit General Chief Complaint: Weakness Stated Complaint: TINGLING L ARM Time Seen by Provider: 06/07/22 17:23 Source: patient Mode of arrival: ambulatory Limitations: no limitations History of Present Illness HPI Narrative: patient history of anxiety and depression brought by EMS for feeling tingling in both hands for last 45 minutes prior to arrival feeling dizzy lightheaded multiple complaints has increased anxiety , no fever no chills no cough as poor sleep complaining of body aches Related Data Previous Rx's Medication Instructions Recorded ondansetron 4 mg disintegrating 4 mg PO Q8-12H PRN nausea and 10/04/21 tablet vomiting #7 tabs diphenhydramine HCl 25 mg capsule 25 mg PO TID PRN allergic reaction 05/04/22 (Benadryl) #14 caps polymyxin B sulfate 10,000 1 drp ophthalmic (eye) Q3H 7 days 05/04/22 unit-trimethoprim 1 mg/mL eye #10 mL drops (Polytrim) prednisone 20 mg tablet 40 mg PO DAILY 4 days #8 tabs 05/04/22 hydroxyzine HCl 25 mg tablet 25 mg PO Q6-8H PRN anxiety #20 tabs 06/07/22 Allergies Allergy/AdvReac Type Severity Reaction Status Date / Time banana [BANANA] Allergy Intermediate ITCHING Unverified 08/07/20 16:38 tree nut [TREE NUT] Allergy Intermediate Hives Unverified 05/04/22 19:06 cat dander Allergy Difficulty Verified 05/04/22 19:06 Breathing grape Allergy Itching Verified 05/04/22 19:06 latex Allergy Hives Verified 05/04/22 19:06 strawberry Allergy Itching Verified 05/04/22 19:06 metoclopramide [From Reglan] AdvReac Anxiety Verified 05/04/22 19:06 NSAIDS (Non-Steroidal AdvReac Unknown Verified 05/04/22 19:06 Anti-Inflamma Review of Systems Review of Systems: Yes all other systems are reviewed and are negative PMFSH Social History Social History Alcohol intake: current Alcohol intake frequency: holidays/special occasions only Patient Tobacco Use Status: Never used Tobacco Use of substances other than those prescribed or required for medical reasons: No Advance Directives: No Advance Directives Information Provided: No Physical Exam Vital Signs: Vital Signs: Last Vital Signs Pulse 75 06/07/22 17:53 BP 140/74 H 06/07/22 17:53 BMI result Body Mass Index 33.8 Appearance: Alert. Oriented X3. No acute distress. anxious Eyes: PERRLA, No Nystagmus ENT: Pharynx normal. Oral Mucosa moist Neck: Normal inspection. Neck supple. CVS: Normal heart rate and rhythm. Pulses normal. Respiratory: No respiratory distress. Equal air entry bilateral, no wheezing/rales/rhonchi Abdomen: Soft and nontender. Bowel sounds are present, no mass palpable, no CVA tenderness Skin: Skin warm and dry. Normal skin color. Normal skin turgor. Extremities: No lower extremity edema. No calf tenderness Neuro: Oriented X 3. No motor deficit. No sensory deficit.No cerebellar signs , cranial nerves II-XII intact MDM - Neuro Symptoms/Deficit MDM Narrative Medical decision making narrative: Patient normal orthostatics feeling much better after receiving IV fluids and Ativan feels symptoms were from anxiety will discharge patient home on Atarax Lab Data Attestation: I reviewed the patient's lab results. Labs: Lab Results 06/07/22 06/07/22 Range/Units 18:50 18:50 Urine Color YELLOW Urine Appearance CLEAR Urine pH 6.0 (5.0-8.0) Ur Specific [place] >= 1.030 H (1.005-1.025) Urine Protein 2+ H (NEG-TRACE) MG/DL Urine Glucose (UA) NEG (NEG) MG/DL Urine Ketones NEG (NEG) MG/DL Urine Blood 1+ H (NEG) Urine Nitrite NEG (NEG) Ur Leukocyte Esterase NEG (NEG) Urine Test NEGATIVE (NEGATIVE) Discharge Plan Discharge Clinical Impression: Anxiety Patient Disposition: Home, Self-Care Instructions: Anxiety (ED) Additional Instructions: Follow up with your therapist Medicine as advised for severe anxiety Prescriptions: New hydroxyzine HCl 25 mg tablet 25 mg PO Q6-8H PRN (Reason: anxiety) Qty: 20 0RF No Action ondansetron 4 mg tablet,disintegrating 4 mg PO Q8-12H PRN (Reason: nausea and vomiting) Qty: 7 0RF polymyxin B sulf-trimethoprim [Polytrim] 10,000 unit- 1 mg/mL drops 1 drp ophthalmic (eye) Q3H 7 Days Qty: 10 0RF Rx Instructions: while awake; do not exceed 6 doses in 24 hours diphenhydramine HCl [Benadryl] 25 mg capsule 25 mg PO TID PRN (Reason: allergic reaction) Qty: 14 0RF prednisone 20 mg tablet 40 mg PO DAILY 4 Days Qty: 8 0RF Interventions: ED Discharge Assessment Last Done: 06/07/22 19:11 Discharge Date/Time: 06/07/22 19:12
[2022-06-07 17:48] VITALS: BP 117/71; PULSE 64
[2022-06-07 17:50] VITALS: BP 123/83; PULSE 70
[2022-06-07 17:53] VITALS: BP 140/74; PULSE 75
[2022-06-07 18:05] VITALS: BP 121/78; PULSE 68; O2SAT 99; BMI 33.8
[2022-06-07] MEDS: LORazepam 1 MG TABLET PO (18:19)
[2022-06-07 19:05] LABS: Appearance Urine CLEAR; Color Urine YELLOW; Glucose Urine UA NEG (NEG); Leukocyte Esterase Urine NEG (NEG); Nitrite Urine NEG (NEG); Specific Gravity - Urine >= 1.030 (1.005-1.025); UACC Culture Trigger NO; Urine Blood 1+ (NEG); Urine Ketones NEG (NEG); Urine Protein 2+ MG/DL (NEG-TRACE)
[2022-06-07 19:06] LABS: UPreg QC Valid YES; Urine Pregnancy NEGATIVE (NEGATIVE)
[2022-06-07 19:19] LABS: Bacteria Urine TRACE /LPF; Mucus Urine 2+ /LPF; RBC Urine 0-2 /HPF (0); Squamous Epithelial Cell Urine 2+ /LPF; WBC Urine 0-2 /HPF (0-4)
== END 2022-06-07 19:12 | disposition home or self-care (01) ==
PROVIDERS: Emergency Provider Internal Medicine; PCP Internal Medicine
DX: F41.1 Generalized anxiety disorder (principal); F43.0 Acute stress reaction; R20.2 Paresthesia of skin; Z79.899 Other long term (current) drug therapy
CPT/HCPCS: 81001; 81003; 81025; 96360; 99284

== ENCOUNTER 2023-09-25 18:12 | Inpatient (IN) | payer OTHER, SELFPAY ==
--- NOTE | 2023-09-25 | ECG_ITS ---
Test Reason : SI Blood Pressure : / mmHG Vent. Rate : 078 BPM Atrial Rate : 078 BPM P-R Int : 156 ms QRS Dur : 078 ms QT Int : 368 ms P-R-T Axes : 038 003 002 degrees QTc Int : 419 ms Normal sinus rhythm Normal ECG When compared with ECG of 27-FEB-2021 22:13, No significant change was found Referred By: Generic ED Physician Electronically Signed By:KIM BROOKS MD
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
[2023-09-25 18:37] VITALS: BP 106/75; PULSE 85; RESP 16; TEMP 36.6; O2SAT 99; BMI 27.4
[2023-09-25 18:51] LABS: MANUAL DIFF FLAG NO
[2023-09-25 18:56] LABS: Prothrombin Time 12.3 SEC (11.1-13.3)
[2023-09-25 19:00] LABS: Basophils Absolute Auto 0.1 X10*3/uL (0.0-0.2); Basophils Percent Auto 0.4 % (0-2); Eosinophils Absolute Auto 0.1 X10*3/uL (0.0-0.4); Eosinophils Percent Auto 0.7 % (0-4); Hematocrit 39.9 % (37.0-47.0); Hemoglobin 13.4 g/dl (12.0-16.0); Imm Gran Abs Auto 0.12 X10*3/uL (0.00-0.03); Imm Gran Pct Auto 0.9 % (0.0-0.4); Lymphocytes Absolute Auto 2.8 X10*3/uL (1.2-4.9); Lymphocytes Percent Auto 20.9 % (20-40); Mean Corpuscular HGB Conc 33.6 g/dl (31.0-35.0); Mean Corpuscular Hemoglobin 29.1 pg (27.0-33.0); Mean Corpuscular Volume 86.7 fL (80.0-98.0); Mean Platelet Volume 9.6 fL (9.4-12.3); Monocytes Absolute Auto 0.7 X10*3/uL (0.1-1.2); Monocytes Percent Auto 4.9 % (2-11); Neutrophils Absolute Auto 9.6 x10*3/uL (2.0-8.3); Neutrophils Percent Auto 72.2 % (45-73); Platelet Count 389 X10*3/uL (160-400); Red Cell Distribution Width 13.3 % (11.0-16.0); White Blood Count 13.4 X10*3/uL (4.8-10.8)
[2023-09-25 19:08] VITALS: BP 116/57; PULSE 71; RESP 16; TEMP 36.8; O2SAT 97
[2023-09-25 19:10] LABS: Acetaminophen LAB 4 mcg/mL (<30); Salicylate < 5.0 mg/dL (15-30)
[2023-09-25 19:16] LABS: Alanine Aminotransferase 8 U/L (0-31); Alkaline Phosphatase 67 U/L (39-117); Anion Gap 13 (12-20); Aspartate Amino Transferase 15 U/L (5-31); Bilirubin Direct 0.2 mg/dL (0.0-0.5); Bilirubin Total 0.4 mg/dL (0.0-1.0); Blood Urea Nitrogen 10 mg/dL (9-16); Calcium 9.2 mg/dL (8.4-10.2); Carbon Dioxide 22 mmol/L (22-29); Chloride 106 mmol/L (96-108); Creatinine Clr Calc Pharmacy 99.6; Estimated Glomerular Filt Rate > 60; Ethanol < 10 mg/dL; Glucose Random 81 mg/dL (60-115); Magnesium 1.7 mg/dL (1.6-2.6); Potassium 3.6 mmol/L (3.3-5.1); Sodium 137 mmol/L (135-145); Total Protein 7.1 g/dL (6.5-8.0); Troponin-I High Sensitivity < 2.7 ng/L (<3.5-17.0)
[2023-09-25 19:27] LABS: HCG Quantitative 43 mIU/mL
--- NOTE | 2023-09-25 19:32 | PC.NURSE ---
Patient brought in via EMS, Section 12 by [employer] for SI. Patient endorses SI and attempt. Plan to overdose on Tylenol and Nyquil. Pt took 4 Tylenol extra strength and a quarter bottle of Nyquil. Pt is alert and oriented x4, respirations even and unlabored, skin pwd, no apparent distress, speech clear and full. Pt endorses active SI thoughts and has a hx of it as well. Pt reports she is off of her depression and anxiety medication. Patient is resting comfortably eating sandwich and drinking water at this time. Patient is 68 normal sinus on monitor. 1:[address] for safety
[2023-09-25 20:24] VITALS: BP 104/61; PULSE 66; RESP 16; TEMP 36.8; O2SAT 98
--- NOTE | 2023-09-25 21:16 | PC.NURSE ---
patient sleeping, respirations even and unlabored, skin pwd, no apparent distress 1:[address] for patient safety
[2023-09-25 21:48] VITALS: BP 99/56; PULSE 73; RESP 16; TEMP 36.9; O2SAT 97
[2023-09-25 22:57] LABS: Appearance Urine Clear; Color Urine Yellow; Glucose Urine UA Negative (Negative); Leukocyte Esterase Urine Trace (Negative); Nitrite Urine Negative (Negative); PH 7.5 (5.0-9.0); UMIC TRIGGER UACC YES; Urine Blood Negative (Negative); Urine Ketones Trace mg/dL (Negative); Urine Protein 100 (2+) mg/dL (Neg-Trace)
[2023-09-25 22:59] LABS: Bacteria Urine Trace (None Seen); Hyaline Casts Urine 0-2 /LPF (0-2); RBC Urine 0-2 /HPF (0-2); UACC Culture Trigger YES
[2023-09-25 23:03] LABS: Amphetamine Screen Urine Not Detected (Not Detect); Barbiturates, Urine Not Detected (Not Detect); Benzodiazepines Screen Urine Not Detected (Not Detect); Cannabinoid Screen Urine POSITIVE (Not Detect); Cocaine Screen Urine Not Detected (Not Detect); Fentanyl, urine Not Detected (Not Detect); Opiate Screen Urine Not Detected (Not Detect); Phencyclidine Screen Urine Not Detected (Not Detect)
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
--- NOTE | 2023-09-26 01:09 | PC.NURSE ---
pt has requested her night time ativan medication and zofran. pt has also requested her own phone to do sign lang with her son so he can go to sleep.
[2023-09-26] MEDS: LORazepam 1 MG TABLET 2 MG PO (01:19)
[2023-09-26] MEDS: Prochlorperazine Maleate 5 MG TABLET 10 MG PO (01:53)
[2023-09-26 06:20] VITALS: BP 97/53; PULSE 65; RESP 16; TEMP 37.1; O2SAT 98
--- NOTE | 2023-09-26 10:35 | PC.NURSE ---
slept all morning, woken by CARE team for eval and pt will be an inpatient bed search, sitter at bedside and transfered to the pod
[2023-09-26 12:41] LABS: COVID-19 Test Negative (Negative); IDNOW Serial# BCCEAD1C
--- NOTE | 2023-09-26 17:42 | PC.NURSE ---
Freda was transferred back to the POD from the main ED. Had a visit with her mother which went well. Freda was told her HcG was elevated which indicated and was told the lab would be repeated in 24 hours and she was ok with this. Freda requested we not share the result with anyone and she was tearful about being . Freda denies SI/HI/AVH but reports she was feeling not ok yesterday. No behavioral concerns while in the POD. Currently visiting with her sons father and had to be redirected to not sit on his lap. She was receptive to the redirection. CV signed and in chart.
[2023-09-26 18:23] VITALS: RESP 18
--- NOTE | 2023-09-26 18:37 | PHA.MEDREC ---
Pharmacy Consult ? Medication Reconciliation Pharmacy has reviewed the medication reconciliation completed by nursing.
--- NOTE | 2023-09-26 19:38 | PC.NURSE ---
Addendum entered by Andie Flores RN 09/26/23 19:49: Belongings secured in locker #3 Original Note: Visitor came to visit patient, brought belongings for admission. Security is going through belongings at this time. Belongings include toiletry bag, bag with 2 pairs of slippers, and a bag of clothes with 2 blankets. Pt is requesting a shower at this time, given a towel and new clothes.
--- NOTE | 2023-09-26 19:55 | PC.NURSE ---
Gave report to Dmitri on M3, stated he will be here shortly to get the patient. Mom and patient aware.
[2023-09-26 22:00] VITALS: BMI 29.2
[2023-09-26] MEDS: traZODone HCL 50 MG TABLET PO (22:01)
[2023-09-26] MEDS: hydrOXYzine HCL 25 MG TABLET PO (22:01)
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
[2023-09-26] MEDS: azaTHIOprine 50 MG TABLET PO (22:46)
[2023-09-27 01:28] VITALS: BP 121/68; PULSE 90; RESP 17; TEMP 36.6; O2SAT 94
[2023-09-27 06:00] VITALS: BP 93/48; PULSE 60; TEMP 36.2; O2SAT 98
[2023-09-27 08:40] LABS: UPreg QC Valid YES; Urine Pregnancy NEGATIVE (NEGATIVE)
[2023-09-27 08:40] LABS: Estimated Average Glucose 88 mg/dL; Hemoglobin A1c % 4.7 % (<6.0)
[2023-09-27] MEDS: azaTHIOprine 50 MG TABLET PO ×2 (08:41→21:26)
[2023-09-27 08:59] LABS: Alanine Aminotransferase 8 U/L (0-31); Albumin Level 3.8 g/dL (3.5-5.0); Alkaline Phosphatase 61 U/L (39-117); Anion Gap 13 (12-20); Aspartate Amino Transferase 12 U/L (5-31); Bilirubin Total 0.3 mg/dL (0.0-1.0); Blood Urea Nitrogen 11 mg/dL (9-16); Calcium 9.4 mg/dL (8.4-10.2); Carbon Dioxide 24 mmol/L (22-29); Chloride 106 mmol/L (96-108); Cholesterol 160 mg/dL (<200); Creatinine Clr Calc Pharmacy 102.8; Estimated Glomerular Filt Rate > 60; Glucose Fasting 86 mg/dL (60-99); HDL Cholesterol 44 mg/dL (>40); LDL Cholesterol Calculated 81 mg/dL (<100); Potassium 3.9 mmol/L (3.3-5.1); Sodium 139 mmol/L (135-145); Triglycerides 178 mg/dL (<150)
[2023-09-27 09:08] VITALS: BP 112/70; PULSE 84; RESP 16; TEMP 36.1; O2SAT 98
[2023-09-27 09:08] LABS: Free T4 (Free Thyroxine) 0.78 ng/dL (0.71-1.85); Thyroid Stimulating Hormone 1.03 uIU/mL (0.32-4.0)
[2023-09-27] MEDS: lisinopriL 10 MG TABLET PO (09:10)
[2023-09-27 09:20] LABS: Folate 7.8 ng/mL (> or = 4.0); Vitamin B12 437 pg/mL (200-900)
[2023-09-27 10:51] LABS: HCG Quantitative 113 mIU/mL
--- NOTE | 2023-09-27 12:39 | PC.NURSE ---
Submitted 3 day notice, up on 09/30/23. Ami Vo inpt prescriber, Mark Galaviz, Stephenie VALDES, charge nurse notified.
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
--- NOTE | 2023-09-27 16:16 | PM.OBCN ---
OB Consult Note - HPI Data Service Date: 09/27/23 Requesting Physician: Nabil Ware MD Primary Care Provider: Unknown Physician Narrative I was consulted on Freda Torres who is a 23 year old female admitted for depression. The patient hCG was 432 days ago repeat day went up to 113. No abdominal/ pelvic cramping or vaginal bleeding. The patient has lupus on azathioprine 50 mg p.o. b.i.d. and lupus nephritis/hypertension controlled on lisinopril 10 mg p.o. q.d. no recent lupus or nephritis flare-ups. 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 Review of Systems ROS Unobtainable: All systems reviewed & are unremarkable except as noted in HPI and below OB PMFSH Past Medical History Medical History (Updated 09/27/23 @ 16:19 by Osei Nieto MD) Hypertension SLE (systemic lupus erythematosus) Anxiety and depression Social History Social History Household Members: Children Household Members Other:: autistic son who is mute Housing: Apartment Do you presently have visiting nurse or other home services: No Alcohol intake: current Alcohol intake frequency: a few times a week Patient Tobacco Use Status: Never used Tobacco Smoked in Last 30 Days: No e-Cigarette/Vaping Use: Currently Using Frequency of e-Cigarette/Vaping Use: vapes daily Patient Interested in Nicotine Replacement: No Patient Given Instructions on How to Stop Smoking: Yes Date Education Initiated: 09/26/23 Second Hand Smoke Exposure: No Use of substances other than those prescribed or required for medical reasons: Yes Substance Use Type: Marijuana Substance Use Frequency: Daily Last Used Substance: Days (ago) Last Used Substance Other:: 09-24 Currently Displaying Signs/Symptoms of Drug Intoxication Withdrawal: No Any prior treatment program specific to substance use: No Have you been hit, kicked, punched, or otherwise hurt by someone within the past year? If so, by whom?: No Do you feel safe in your current relationship?: No Current Relationship Is there a partner from a previous relationship who is making you feel unsafe now?: No Are you made to feel afraid or neglected: No Spiritual Healthcare Practices: spiritual but not confucianist Advance Directives: No Advance Directives Information Provided: No Healthcare Proxy: No Guardian: No Do you have thoughts of harming others: None Do you have a plan to hurt others: No Plan Recently lost weight without trying: No Eating poorly because of decreased appetite: No Nutrition Risks: No Nutritional Risk : No Poor oral hygiene: No service: No Sexual orientation: Straight/Heterosexual Meds Allergies Allergy/AdvReac Type Severity Reaction Status Date / Time banana [BANANA] Allergy Intermediate ITCHING Verified 09/25/23 18:56 tree nut [TREE NUT] Allergy Intermediate Hives Verified 09/25/23 18:56 cat dander Allergy Difficulty Verified 09/25/23 18:56 Breathing grape Allergy Itching Verified 09/25/23 18:56 latex Allergy Hives Verified 09/25/23 18:56 strawberry Allergy Itching Verified 09/25/23 18:56 metoclopramide [From Reglan] AdvReac Anxiety Verified 09/25/23 18:56 NSAIDS (Non-Steroidal AdvReac Unknown Verified 09/25/23 18:56 Anti-Inflamma Active Medications: Current Medications Acetaminophen (Acetaminophen 325 Mg Tablet) 650 mg PO Q6H PRN PRN Reason: Headache/Pain Mild Scale (1-3) Al Hydroxide/Mg Hydroxide (Magnesium Hydrox/Alum Hydrox 30 Ml Oral.Susp) 30 ml PO Q6H PRN PRN Reason: Heartburn/Nausea Azathioprine (Azathioprine 50 Mg Tablet) 50 mg PO BID [facility] Last Admin: 09/27/23 08:41 Dose: 50 mg Hydroxyzine HCl (Hydroxyzine Hcl 25 Mg Tablet) 25 mg PO Q6H PRN PRN Reason: Anxiety Last Admin: 09/26/23 22:01 Dose: 25 mg Lisinopril (Lisinopril 10 Mg Tablet) 10 mg PO DAILY [facility]; Protocol Last Admin: 09/27/23 09:10 Dose: 10 mg Magnesium Hydroxide (Milk Of Magnesia 30 Ml Oral.Susp) 30 ml PO DAILY PRN PRN Reason: Constipation Home Medications Medication Instructions Recorded Confirmed Last Taken Type azathioprine 50 mg tablet 50 mg PO BID 09/25/23 09/26/23 Unknown History lisinopril 10 mg tablet 10 mg PO DAILY 09/25/23 09/25/23 Unknown History OB Flowsheet OB Flowsheet & Tools History 1 Elective abortions Para 1 Spontaneous abortions Hx # Term Pregnancies Ectopic pregnancies Hx # Pregnancies Multiple births OB Physical Exam Physical Exam Constitutional: No apparent distress Cardiovascular: Normal S1, S2 Vascular: No edema Gastrointestinal: Bowel sounds present Psychiatric: Alert Additional Comments: Pelvic exam: Copious Vaginal discharge, no cervical motion tenderness no uterine or adnexal tenderness OB Consult Results Labs 09/25/23 18:45 09/27/23 08:13 Labs: BMP 09/27/23 08:13 Sodium 139 Potassium 3.9 Chloride 106 Carbon Dioxide 24 BUN 11 Creatinine 0.78 Calcium 9.4 Liver Function 09/27/23 Range/Units 08:13 Total Bilirubin 0.3 (0.0-1.0) mg/dL AST 12 (5-31) U/L ALT 8 (0-31) U/L Alkaline Phosphatase 61 (39-117) U/L Albumin 3.8 (3.5-5.0) g/dL Urine 09/25/23 09/27/23 Range/Units 22:49 08:10 Urine Color Yellow Urine Appearance Clear Urine pH 7.5 (5.0-9.0) Ur Specific [place] 1.020 (1.005-1.025) Urine Protein 100 (2+) H (Neg-Trace) mg/dL Urine Glucose (UA) Negative (Negative) mg/dL Urine Test NEGATIVE (NEGATIVE) OB - CN: A/P Assessment and Plan (1) Early stage of : Status: Acute Assessment and Plan: Recommended hCG every 48 hours till above 3500 , order OB pelvic ultrasound to document IUP and rule out ectopic . SAB/ectopic warnings given to the patient, she is to call or go to emergency room in case of pelvic cramping/pain and /or bleeding vitamin 1 tablet p.o. q.d., since vitamins not on formulary at the hospital, folic acid 1 mg p.o. q.d. (400 mcg not available at the hospital) (2) SLE (systemic lupus erythematosus): Status: Acute Assessment and Plan: -Discussed with the patient impact of lupus on , increased including higher maternal risk in , including but not limited to preeclampsia, , loss and infant , IUGR, lupus -No records available with the previous patient's lupus diagnosis , recommend if not previously order: SSA/SSB antibodies, anti double-stranded DNA antibodies, complement, renal function including creatinine, urinalysis, liver function test were done and within normal, in addition to lupus anticoagulant, IgG and IgM, anticardiolipin antibodies, IgG and IgM anti beta 2 glycoprotein -Refer to [facility] for an early appointment once discharged from inpatient within few days. -Low-dose aspirin to be started at 12 weeks to decrease the risk of preeclampsia and its sequelae including IUGR -No nonsteroidal anti-inflammatory drugs to be used in -Azathioprine is compatible with , is associated with more risk of congenital anomalies, recommend to consult rheumatology to decide on keeping azathioprine or start a different medication in Lisinopril is contraindicated in -to be discontinue immediately. Consult nephrology for the indication for any potential alternative medication for hypertension and arthritis -The use of antidepressant is subject to benefit/ risk ratio evaluation (3) Screen for STD (sexually transmitted disease): Status: Acute Assessment and Plan: STD screening tests done includes: BV panel for trichomonas, GC/CT will send patient for serology std screening for HIV, RPR, Hep b s Ag, HepC Ab. Instructions given the patient to schedule a follow-up appointment for repeat serology screen in 6 months for possible false negatives. Time Spent With Patient Time: Total time managing care of this patient today ____ minutes.
[2023-09-27] MEDS: Acetaminophen 325 MG TABLET 650 MG PO (16:44)
[2023-09-27] MEDS: Folic Acid 1 MG TABLET PO (16:44)
[2023-09-27 18:44] LABS: CT PCR NOT DETECTED (Not Detect.); NG PCR NOT DETECTED (Not Detect.)
[2023-09-27 21:15] VITALS: BP 112/55; PULSE 89; RESP 14; TEMP 36.5; O2SAT 98
[2023-09-27] MEDS: hydrOXYzine HCL 25 MG TABLET PO (21:31)
[2023-09-28 04:15] LABS: HBsAGNum1 3.18 S/CO (0.00-0.99); HIV Num 1 4.18 S/CO (0.00-0.99); ~HepC Num1 0.08 S/CO (0.00-0.79); ~Hepatitis C Antibody Nonreactive (Nonreactive)
[2023-09-28 04:36] LABS: Syphilis Screen Nonreactive (Nonreactive)
[2023-09-28 05:23] LABS: HBsAGNum2 Nonreactive; HBsAGNum3 Nonreactive; HIV AB/AG Nonreactive (Nonreactive); HIV Num 2 0.05 S/CO; HIV Num 3 0.06 S/CO; Hepatitis B Surface Antigen NEGATIVE (Negative)
[2023-09-28 06:00] VITALS: BP 93/49; PULSE 83; TEMP 37; O2SAT 97
[2023-09-28] MEDS: Folic Acid 1 MG TABLET PO (09:11)
[2023-09-28] MEDS: FLUoxetine HCl 10 MG CAPSULE PO (09:11)
[2023-09-28] MEDS: azaTHIOprine 50 MG TABLET PO ×2 (09:11→20:16)
[2023-09-28] MEDS: Magnesium Hydrox/Alum Hydrox 30 ML ORAL.SUSP PO (09:14)
[2023-09-28 10:00] LABS: BV Int Neg Control Negative (Negative); BV Int Pos Control Positive (Positive)
--- NOTE | 2023-09-28 12:30 | HO.PSYCHPN ---
Subjective Subjective Date of Service: 09/28/23 Reason For Visit: crisis, took unk amount of Nyquil & Tylenol Subjective Notes: 3 Day Interim History: Reviewed in team and . Patient reports feeling good today. Pt stated, I'm not feeling depressed at all. I'm focused on being and trying to decide if I want to keep the baby or not. I told my mom and father of my son. I'm going to call today and make an appointment at [facility] and also see my lupus doctor . denies SI/HI Medication Compliance: Yes Side effects from medications: No Attending Groups: Yes Review of Systems Constitutional: Reports as per HPI Eyes: Reports as per HPI Reports as per HPI Cardiovascular: Reports as per HPI Respiratory: Reports as per HPI Gastrointestinal: Reports as per HPI Genitourinary: Reports as per HPI Musculoskeletal: Reports as per HPI Skin/Breast: Reports as per HPI Reports as per HPI Psychiatric: Reports as per HPI Endocrine: Reports as per HPI Hematologic/Lymphatic: Reports as per HPI Allergic/Immunologic: Reports as per HPI Mental Status Exam Mental Status Exam Narrative: Pt is alert and oriented; behavior is cooperative, friendly and calm; dressed in casual attire; mood is described as good ; eye contact appropriate; Speech is normal rate, volume and prosody and not pressured; no psychomotor agitation/retardation present; thought process is organized and goal directed; Thought content is on tx; otherwise pertinent to relevant topics and without any delusional content, paranoid ideations or grandiosity; denies SI/HI. There is no evidence of perceptual disturbance. Diagnostics Vital Signs (24Hr): Vital Signs - 24 hr 09/27/23 21:15 09/28/23 06:00 Temperature 97.7 F 98.6 F Pulse Rate 89 83 Respiratory Rate 14 Blood Pressure 112/55 L 93/49 L Pulse Oximetry 98 97 Oxygen Delivery Method Room Air Room Air BMI result Body Mass Index 29.2 Labs 09/25/23 18:45 09/27/23 08:13 Labs: Laboratory Results - last 48 hr 09/26/23 09/27/23 09/27/23 12:14 08:10 08:13 Sodium 139 Potassium 3.9 Chloride 106 Carbon Dioxide 24 Anion Gap 13 BUN 11 Creatinine 0.78 Estim Creat Clear Calc 102.8 Estimated GFR > 60 Fasting Glucose 86 Estimat Average Glucose 88 Hemoglobin A1c % 4.7 Calcium 9.4 Total Bilirubin 0.3 AST 12 ALT 8 Alkaline Phosphatase 61 Total Protein 7.0 Albumin 3.8 Triglycerides 178 H Cholesterol 160 LDL Cholesterol, Calc 81 HDL Cholesterol 44 Vitamin B12 437 Folate 7.8 TSH 1.03 Free T4 0.78 Beta HCG, Quant 113 Urine Test NEGATIVE T.pallidum Ab (EIA) Estelita species DNA Chlam trachomat DNA PCR COVID-19 (GENTRY) Negative COVID-19 Clin Com See Note Gardnerella DNA Probe Hep Bs Antigen Hep Bs Antigen (2) Hepatitis C Ab (EIA) HIV 1&2 Ab/P24 Ag 4thGn N.gonorrhoeae DNA (PCR) Trichomonas DNA Probe 09/27/23 09/27/23 20:05 Unknown Sodium Potassium Chloride Carbon Dioxide Anion Gap BUN Creatinine Estim Creat Clear Calc Estimated GFR Fasting Glucose Estimat Average Glucose Hemoglobin A1c % Calcium Total Bilirubin AST ALT Alkaline Phosphatase Total Protein Albumin Triglycerides Cholesterol LDL Cholesterol, Calc HDL Cholesterol Vitamin B12 Folate TSH Free T4 Beta HCG, Quant Urine Test T.pallidum Ab (EIA) Nonreactive Estelita species DNA Negative Chlam trachomat DNA PCR NOT DETECTED COVID-19 (GENTRY) COVID-19 Clin Com Gardnerella DNA Probe Positive A Hep Bs Antigen Not Reportable Hep Bs Antigen (2) NEGATIVE Hepatitis C Ab (EIA) Nonreactive HIV 1&2 Ab/P24 Ag 4thGn Nonreactive N.gonorrhoeae DNA (PCR) NOT DETECTED Trichomonas DNA Probe Negative Medications Medications Current Medications Acetaminophen (Acetaminophen 325 Mg Tablet) 650 mg PO Q6H PRN PRN Reason: Headache/Pain Mild Scale (1-3) Last Admin: 09/27/23 16:44 Dose: 650 mg Al Hydroxide/Mg Hydroxide (Magnesium Hydrox/Alum Hydrox 30 Ml Oral.Susp) 30 ml PO Q6H PRN PRN Reason: Heartburn/Nausea Last Admin: 09/28/23 09:14 Dose: 30 ml Azathioprine (Azathioprine 50 Mg Tablet) 50 mg PO BID [facility] Last Admin: 09/28/23 09:11 Dose: 50 mg Fluoxetine HCl (Fluoxetine Hcl 10 Mg Capsule) 10 mg PO DAILY [facility] Last Admin: 09/28/23 09:11 Dose: 10 mg Folic Acid (Folic Acid 1 Mg Tablet) 1 mg PO DAILY [facility] Last Admin: 09/28/23 09:11 Dose: 1 mg Hydroxyzine HCl (Hydroxyzine Hcl 25 Mg Tablet) 25 mg PO Q6H PRN PRN Reason: Anxiety Last Admin: 09/27/23 21:31 Dose: 25 mg Lisinopril (Lisinopril 10 Mg Tablet) 10 mg PO DAILY [facility]; Protocol Last Admin: 09/27/23 09:10 Dose: 10 mg Magnesium Hydroxide (Milk Of Magnesia 30 Ml Oral.Susp) 30 ml PO DAILY PRN PRN Reason: Constipation Allergies Allergies Allergy/AdvReac Type Severity Reaction Status Date / Time banana [BANANA] Allergy Intermediate ITCHING Verified 09/25/23 18:56 tree nut [TREE NUT] Allergy Intermediate Hives Verified 09/25/23 18:56 cat dander Allergy Difficulty Verified 09/25/23 18:56 Breathing grape Allergy Itching Verified 09/25/23 18:56 latex Allergy Hives Verified 09/25/23 18:56 strawberry Allergy Itching Verified 09/25/23 18:56 metoclopramide [From Reglan] AdvReac Anxiety Verified 09/25/23 18:56 NSAIDS (Non-Steroidal AdvReac Unknown Verified 09/25/23 18:56 Anti-Inflamma Assessment & Plan Assessment & Plan (1) MDD (major depressive disorder): Status: Acute Code(s): F32.9 - Major depressive disorder, single episode, unspecified Plan Patient is a 23 year old female with hx of MDD with this being her first psychiatric inpatient hospitalization, who presented to ER via EMS after over ingesting tylenol and Nyquil and being found disoriented by her mother who called 911. Plan: CV Pt signed 3 day Consult to OBGYN Start: Prozac 10mg PO daily Possible referral to PHP? Referral to outpatient therapist and psychiatric provider. 09/28: Patient reports feeling good today. Pt stated, I'm not feeling depressed at all. I'm focused on being and trying to decide if I want to keep the baby or not. I told my mom and father of my son. I'm going to call today and make an appointment at [facility] and also see my lupus doctor . denies SI/HI Patient educated on: diagnosis, medication risk/benefits, therapeutic strategies and medical condition Informed Consent: understands Reason for continued inpatient stay Substantial Risk for: med/psych decompensation Time Spent With Patient Time: Total time managing care of this patient today _30___ minutes.
[2023-09-28] MEDS: metroNIDAZOLE 500 MG TABLET PO ×2 (14:53→20:16)
[2023-09-28 20:00] VITALS: BP 133/57; PULSE 95; TEMP 36.6; O2SAT 97
[2023-09-28] MEDS: hydrOXYzine HCL 25 MG TABLET PO (20:22)
[2023-09-28] MEDS: Acetaminophen 325 MG TABLET 650 MG PO (22:11)
[2023-09-29] MEDS: Folic Acid 1 MG TABLET PO (09:18)
[2023-09-29] MEDS: azaTHIOprine 50 MG TABLET PO ×2 (09:18→20:08)
[2023-09-29] MEDS: FLUoxetine HCl 10 MG CAPSULE PO (09:18)
[2023-09-29] MEDS: metroNIDAZOLE 500 MG TABLET PO ×2 (09:18→20:08)
--- NOTE | 2023-09-29 09:20 | HO.PSYCHPN ---
Subjective Subjective Date of Service: 09/29/23 Reason For Visit: crisis, took unk amount of Nyquil & Tylenol Subjective Notes: 3 Day Interim History: Reviewed in team and . Patient reports she continues to feel good . Pt stated, I can't wait to go home. I miss my son. I never wanted to ; I wasn't thinking. I called [facility] to do an intake and I'll see them when I leave. I'm also going to call my lupus doctor today. I still haven;t decided what I want to do with the . Patient reports she plans on following up with outpatient providers. denies SI/HI/AH/VH/ Medication Compliance: Yes Side effects from medications: No Attending Groups: Yes Review of Systems Review of Systems Constitutional: Reports as per HPI Eyes: Reports as per HPI Reports as per HPI Cardiovascular: Reports as per HPI Respiratory: Reports as per HPI Gastrointestinal: Reports as per HPI Genitourinary: Reports as per HPI Musculoskeletal: Reports as per HPI Skin/Breast: Reports as per HPI Reports as per HPI Psychiatric: Reports as per HPI Endocrine: Reports as per HPI Hematologic/Lymphatic: Reports as per HPI Allergic/Immunologic: Reports as per HPI Mental Status Exam Mental Status Exam Narrative: Pt is alert and oriented; behavior is cooperative, friendly and calm; dressed in casual attire; mood is described as good ; eye contact appropriate; Speech is normal rate, volume and prosody and not pressured; no psychomotor agitation/retardation present; thought process is organized and goal directed; Thought content is on tx; otherwise pertinent to relevant topics and without any delusional content, paranoid ideations or grandiosity; denies SI/HI. There is no evidence of perceptual disturbance. Diagnostics Vital Signs (24Hr): Vital Signs - 24 hr 09/28/23 20:00 Temperature 97.9 F Pulse Rate 95 Blood Pressure 133/57 L Pulse Oximetry 97 Oxygen Delivery Method Room Air BMI result Body Mass Index 29.2 Labs 09/25/23 18:45 09/27/23 08:13 Labs: Laboratory Results - last 48 hr 09/27/23 09/27/23 09/27/23 08:13 20:05 Unknown Vitamin B12 437 Folate 7.8 Beta HCG, Quant 113 T.pallidum Ab (EIA) Nonreactive Estelita species DNA Negative Chlam trachomat DNA PCR NOT DETECTED Gardnerella DNA Probe Positive A Hep Bs Antigen Not Reportable Hep Bs Antigen (2) NEGATIVE Hepatitis C Ab (EIA) Nonreactive HIV 1&2 Ab/P24 Ag 4thGn Nonreactive N.gonorrhoeae DNA (PCR) NOT DETECTED Trichomonas DNA Probe Negative Medications Medications Current Medications Acetaminophen (Acetaminophen 325 Mg Tablet) 650 mg PO Q6H PRN PRN Reason: Headache/Pain Mild Scale (1-3) Last Admin: 09/28/23 22:11 Dose: 650 mg Al Hydroxide/Mg Hydroxide (Magnesium Hydrox/Alum Hydrox 30 Ml Oral.Susp) 30 ml PO Q6H PRN PRN Reason: Heartburn/Nausea Last Admin: 09/28/23 09:14 Dose: 30 ml Azathioprine (Azathioprine 50 Mg Tablet) 50 mg PO BID [facility] Last Admin: 09/29/23 09:18 Dose: 50 mg Fluoxetine HCl (Fluoxetine Hcl 10 Mg Capsule) 10 mg PO DAILY [facility] Last Admin: 09/29/23 09:18 Dose: 10 mg Folic Acid (Folic Acid 1 Mg Tablet) 1 mg PO DAILY [facility] Last Admin: 09/29/23 09:18 Dose: 1 mg Hydroxyzine HCl (Hydroxyzine Hcl 25 Mg Tablet) 25 mg PO Q6H PRN PRN Reason: Anxiety Last Admin: 09/28/23 20:22 Dose: 25 mg Lisinopril (Lisinopril 10 Mg Tablet) 10 mg PO DAILY [facility]; Protocol Last Admin: 09/27/23 09:10 Dose: 10 mg Magnesium Hydroxide (Milk Of Magnesia 30 Ml Oral.Susp) 30 ml PO DAILY PRN PRN Reason: Constipation Metronidazole (Metronidazole 500 Mg Tablet) 500 mg PO BID [facility] Last Admin: 09/29/23 09:18 Dose: 500 mg Allergies Allergies Allergy/AdvReac Type Severity Reaction Status Date / Time banana [BANANA] Allergy Intermediate ITCHING Verified 09/25/23 18:56 tree nut [TREE NUT] Allergy Intermediate Hives Verified 09/25/23 18:56 cat dander Allergy Difficulty Verified 09/25/23 18:56 Breathing grape Allergy Itching Verified 09/25/23 18:56 latex Allergy Hives Verified 09/25/23 18:56 strawberry Allergy Itching Verified 09/25/23 18:56 metoclopramide [From Reglan] AdvReac Anxiety Verified 09/25/23 18:56 NSAIDS (Non-Steroidal AdvReac Unknown Verified 09/25/23 18:56 Anti-Inflamma Assessment & Plan Assessment & Plan (1) MDD (major depressive disorder): Status: Acute Code(s): F32.9 - Major depressive disorder, single episode, unspecified Plan Patient is a 23 year old female with hx of MDD with this being her first psychiatric inpatient hospitalization, who presented to ER via EMS after over ingesting tylenol and Nyquil and being found disoriented by her mother who called 911. Plan: CV Pt signed 3 day Consult to OBGYN Start: Prozac 10mg PO daily Possible referral to PHP? Referral to outpatient therapist and psychiatric provider. 09/28: Patient reports feeling good today. Pt stated, I'm not feeling depressed at all. I'm focused on being and trying to decide if I want to keep the baby or not. I told my mom and father of my son. I'm going to call today and make an appointment at [facility] and also see my lupus doctor . denies SI/HI 09/29: Patient reports she continues to feel good . Pt stated, I can't wait to go home. I miss my son. I never wanted to ; I wasn't thinking. I called [facility] to do an intake and I'll see them when I leave. I'm also going to call my lupus doctor today. I still haven;t decided what I want to do with the . Patient reports she plans on following up with outpatient providers. denies SI/HI/AH/VH. Plan to discharge patient tomorrow on 3 day. Patient educated on: diagnosis, medication risk/benefits and therapeutic strategies Informed Consent: understands Reason for continued inpatient stay Substantial Risk for: stable for discharge Time Spent With Patient Time: Total time managing care of this patient today _30___ minutes.
[2023-09-29 09:33] VITALS: BP 103/53; PULSE 72; RESP 20; TEMP 36.7; O2SAT 99
[2023-09-29 09:33] LABS: HCG Quantitative 298 mIU/mL
[2023-09-29] MEDS: hydrOXYzine HCL 25 MG TABLET PO ×2 (13:54→20:08)
[2023-09-29 20:08] VITALS: BP 124/56; PULSE 84; TEMP 36.6; O2SAT 99
[2023-09-30 06:00] VITALS: BP 107/51; PULSE 88; RESP 18; TEMP 36.7; O2SAT 99
[2023-09-30] MEDS: Folic Acid 1 MG TABLET PO (08:15)
[2023-09-30] MEDS: FLUoxetine HCl 10 MG CAPSULE PO (08:16)
[2023-09-30] MEDS: metroNIDAZOLE 500 MG TABLET PO (08:16)
[2023-09-30] MEDS: azaTHIOprine 50 MG TABLET PO (08:16)
--- NOTE | 2023-09-30 09:18 | PM.PSYDC ---
DS: Providers Provider Date of Service: 09/30/23 Date of admission: 09/26/23 20:02 Date of discharge: 09/30/23 Primary care physician: Unknown Physician Admitting clinician: Ami Umaña Attending physician on admission: Nabil Ware Consults: 09/27/23 14:30 Consult to Obstetrics / Gynecology Routine Consulting Provider: Osei Nieto Reason for consultation: Medication management, high hcg Has provider been notified: Yes Attending physician on discharge: Nabil Ware Discharging clinician: Ami Umaña DS: Diagnosis Discharge Diagnosis (1) MDD (major depressive disorder): Status: Acute DS: Medications Discharge Medications Home Medications: Home Medications Medication Instructions Recorded Confirmed azathioprine 50 mg tablet 50 mg PO BID 09/25/23 09/26/23 Previous Rx's Medication Instructions Recorded fluoxetine 10 mg capsule 10 mg PO DAILY 30 days #30 caps 09/29/23 metronidazole 500 mg tablet 500 mg PO BID 4 days #8 tabs 09/29/23 Mental Status Exam Mental Status Exam Narrative: Pt is alert and oriented; behavior is cooperative, friendly and calm; dressed in casual attire; mood is described as good ; eye contact appropriate; Speech is normal rate, volume and prosody and not pressured; no psychomotor agitation/retardation present; thought process is organized and goal directed; Thought content is on tx; otherwise pertinent to relevant topics and without any delusional content, paranoid ideations or grandiosity; denies SI/HI. There is no evidence of perceptual disturbance. Patients insight and judgment are fair. Data Data Completed and Pending Completed studies during hospitalization [Text1]: 09/25/23 09/25/23 09/26/23 18:45 22:49 12:14 WBC 13.4 H RBC 4.60 Hgb 13.4 Hct 39.9 MCV 86.7 MCH 29.1 MCHC 33.6 RDW 13.3 Plt Count 389 MPV 9.6 Immature Gran % (Auto) 0.9 H Neut % (Auto) 72.2 Lymph % (Auto) 20.9 [place] % (Auto) 4.9 Eos % (Auto) 0.7 Baso % (Auto) 0.4 Lymph # (Auto) 2.8 [place] # (Auto) 0.7 Eos # (Auto) 0.1 Baso # (Auto) 0.1 Abs Immat Gran (auto) 0.12 H Absolute Neuts (auto) 9.6 H Absolute Nucleated RBC 0.000 Nucleated RBC % (auto) 0.0 PT 12.3 INR 1.0 Sodium 137 Potassium 3.6 Chloride 106 Carbon Dioxide 22 Anion Gap 13 BUN 10 Creatinine 0.78 Estim Creat Clear Calc 99.6 Estimated GFR > 60 Random Glucose 81 Fasting Glucose Estimat Average Glucose Hemoglobin A1c % Calcium 9.2 Magnesium 1.7 Total Bilirubin 0.4 Direct Bilirubin 0.2 AST 15 ALT 8 Alkaline Phosphatase 67 Troponin I High Sens < 2.7 Total Protein 7.1 Albumin 4.0 Triglycerides Cholesterol LDL Cholesterol, Calc HDL Cholesterol Vitamin B12 Folate TSH Free T4 Beta HCG, Quant 43 Urine Color Yellow Urine Appearance Clear Urine pH 7.5 Ur Specific [place] 1.020 Urine Protein 100 (2+) H Urine Glucose (UA) Negative Urine Ketones Trace Urine Blood Negative Urine Nitrite Negative Ur Leukocyte Esterase Trace H Urine RBC 0-2 Urine WBC 6-10 H Ur Squamous Epith Cells 6-10 Urine Bacteria Trace Hyaline Casts 0-2 Urine Test Salicylates < 5.0 L Urine Opiates Screen Not Detected Urine Fentanyl Screen Not Detected Acetaminophen 4 Ur Barbiturates Screen Not Detected Ur Phencyclidine Scrn Not Detected Ur Amphetamines Screen Not Detected U Benzodiazepines Scrn Not Detected Urine Cocaine Screen Not Detected U Marijuana (THC) Screen POSITIVE H Ethyl Alcohol < 10 T.pallidum Ab (EIA) [place] species DNA Chlam trachomat DNA PCR COVID-19 (GENTRY) Negative COVID-19 Clin Com See Note Gardnerella DNA Probe Hep Bs Antigen Hep Bs Antigen (2) Hepatitis C Ab (EIA) HIV 1&2 Ab/P24 Ag 4thGn N.gonorrhoeae DNA (PCR) Trichomonas DNA Probe 09/27/23 09/27/23 09/27/23 08:10 08:13 20:05 WBC RBC Hgb Hct MCV MCH MCHC RDW Plt Count MPV Immature Gran % (Auto) Neut % (Auto) Lymph % (Auto) [place] % (Auto) Eos % (Auto) Baso % (Auto) Lymph # (Auto) [place] # (Auto) Eos # (Auto) Baso # (Auto) Abs Immat Gran (auto) Absolute Neuts (auto) Absolute Nucleated RBC Nucleated RBC % (auto) PT INR Sodium 139 Potassium 3.9 Chloride 106 Carbon Dioxide 24 Anion Gap 13 BUN 11 Creatinine 0.78 Estim Creat Clear Calc 102.8 Estimated GFR > 60 Random Glucose Fasting Glucose 86 Estimat Average Glucose 88 Hemoglobin A1c % 4.7 Calcium 9.4 Magnesium Total Bilirubin 0.3 Direct Bilirubin AST 12 ALT 8 Alkaline Phosphatase 61 Troponin I High Sens Total Protein 7.0 Albumin 3.8 Triglycerides 178 H Cholesterol 160 LDL Cholesterol, Calc 81 HDL Cholesterol 44 Vitamin B12 437 Folate 7.8 TSH 1.03 Free T4 0.78 Beta HCG, Quant 113 Urine Color Urine Appearance Urine pH Ur Specific [place] Urine Protein Urine Glucose (UA) Urine Ketones Urine Blood Urine Nitrite Ur Leukocyte Esterase Urine RBC Urine WBC Ur Squamous Epith Cells Urine Bacteria Hyaline Casts Urine Test NEGATIVE Salicylates Urine Opiates Screen Urine Fentanyl Screen Acetaminophen Ur Barbiturates Screen Ur Phencyclidine Scrn Ur Amphetamines Screen U Benzodiazepines Scrn Urine Cocaine Screen U Marijuana (THC) Screen Ethyl Alcohol T.pallidum Ab (EIA) Nonreactive [place] species DNA Chlam trachomat DNA PCR COVID-19 (GENTRY) COVID-19 Clin Com Gardnerella DNA Probe Hep Bs Antigen Not Reportable Hep Bs Antigen (2) NEGATIVE Hepatitis C Ab (EIA) Nonreactive HIV 1&2 Ab/P24 Ag 4thGn Nonreactive N.gonorrhoeae DNA (PCR) Trichomonas DNA Probe 09/27/23 09/29/23 Unknown 08:45 WBC RBC Hgb Hct MCV MCH MCHC RDW Plt Count MPV Immature Gran % (Auto) Neut % (Auto) Lymph % (Auto) [place] % (Auto) Eos % (Auto) Baso % (Auto) Lymph # (Auto) [place] # (Auto) Eos # (Auto) Baso # (Auto) Abs Immat Gran (auto) Absolute Neuts (auto) Absolute Nucleated RBC Nucleated RBC % (auto) PT INR Sodium Potassium Chloride Carbon Dioxide Anion Gap BUN Creatinine Estim Creat Clear Calc Estimated GFR Random Glucose Fasting Glucose Estimat Average Glucose Hemoglobin A1c % Calcium Magnesium Total Bilirubin Direct Bilirubin AST ALT Alkaline Phosphatase Troponin I High Sens Total Protein Albumin Triglycerides Cholesterol LDL Cholesterol, Calc HDL Cholesterol Vitamin B12 Folate TSH Free T4 Beta HCG, Quant 298 Urine Color Urine Appearance Urine pH Ur Specific [place] Urine Protein Urine Glucose (UA) Urine Ketones Urine Blood Urine Nitrite Ur Leukocyte Esterase Urine RBC Urine WBC Ur Squamous Epith Cells Urine Bacteria Hyaline Casts Urine Test Salicylates Urine Opiates Screen Urine Fentanyl Screen Acetaminophen Ur Barbiturates Screen Ur Phencyclidine Scrn Ur Amphetamines Screen U Benzodiazepines Scrn Urine Cocaine Screen U Marijuana (THC) Screen Ethyl Alcohol T.pallidum Ab (EIA) [place]ita species DNA Negative Chlam trachomat DNA PCR NOT DETECTED COVID-19 (GENTRY) COVID-19 Clin Com [place] DNA Probe Positive A Hep Bs Antigen Hep Bs Antigen (2) Hepatitis C Ab (EIA) HIV 1&2 Ab/P24 Ag 4thGn N.gonorrhoeae DNA (PCR) NOT DETECTED Trichomonas DNA Probe Negative 09/25/23 Unknown Urine clean catch - Urine hull top Urine Culture - Final Strep agalactiae (Grp B) DS: Summary Hospital Course Hospital Course: Patient is a 23 year old female with hx of MDD with this being her first psychiatric inpatient hospitalization, who presented to ER via EMS after over ingesting tylenol and Nyquil and being found disoriented by her mother who called 911. Per crisis report, patient ingested tylenol (4 extra-strength) and Nyquil (1/3 of the bottle), mother found pt disoriented in her apartment and called 911. During admission assessment, patient presents calm and cooperative. Pt reports feeling anxious and depressed over the past year. Patient stated, a lot of stuff as been happening for the past year. My son is non-verbal, I got from his father. My support system jordin sucks and looking for a job has been unsuccessful . Patient reports she has been drinking more than usual but not getting black out drunk ; she also reports smoking marijuana daily. Patient denies suicidal ideation and states this was not a suicide attempt; I understand I could of . I don't want to . I just wanted to sleep . Patient stated, my parents and my son's father were insulting me and my parents threatened to take away my car if I didn't find a job . Patient reports she is not consistently medication compliant and would take medications consistently for a week and then wouldn't for 3 weeks. Pt stated, I feel clear when I take my medication but when I don't, I'm on edge and get triggered easily. Sometimes I feel like I deserve to feel like shit for not having a job or drinking. Patient denies SI/HI/VH/AH. Patient is requesting a referral to an outpatient therapist and prescriber. Patient HCG today was 113. OBGYN consult placed. Patient reports during her last she had a high risk team at [facility] d/t her diagnosis of lupus, which she plans on following up with once discharged. She also reports taking Prozac throughout her and understands the risks/benefits; she is requesting to be restarted on this medication. During hospital stay, Pt signed 3 day. Start: Prozac 10mg PO daily. Patient reports feeling good today. Pt stated, I'm not feeling depressed at all. I'm focused on being and trying to decide if I want to keep the baby or not. I told my mom and father of my son. I'm going to call today and make an appointment at [facility] and also see my lupus doctor . denies SI/HI Patient reports she continues to feel good . Pt stated, I can't wait to go home. I miss my son. I never wanted to ; I wasn't thinking. I called [facility] to do an intake and I'll see them when I leave. I'm also going to call my lupus doctor today. I still haven;t decided what I want to do with the . Patient reports she plans on following up with outpatient providers. denies SI/HI/AH/VH. Pt discharged on 3 day. Time spent discussing smoking cessation with patient: 3 to 10 minutes Status at Discharge Cognitive/behavioral status at discharge: Patient was interviewed prior to discharge and found to be fully oriented and without any SI or HI. Patient has insight and demonstrates good judgment in terms of wanting to pursue treatment. Patient is not in imminent risk of harm to self or others and has a safety plan that includes presenting to the closest ER or calling 911 if feeling unsafe. Patient has been observed closely by nursing and unit staff throughout admission; patient has not engaged in any behaviors that suggest dangerousness to self or others and has demonstrated appropriate behaviors and impulse control. Functional status at discharge: independent ambulation Overall status at discharge: patient is back to baseline Time Spent with Patient Time attestation: Total time managing care of this patient today _30___ minutes. Time spent: Less than 30 minutes Discharge Plan Discharge Anticipated Discharge Date/Time: 09/30/23 10:00 Patient Disposition: Home, Self-Care Discharge Diagnosis: MDD Referrals: Physician,Unknown J [Primary Care Provider] - 1 Week Discharge Medications: New fluoxetine 10 mg Capsule 10 mg PO DAILY 30 Days Qty: 30 0RF metronidazole 500 mg Tablet 500 mg PO BID 4 Days Qty: 8 0RF Continued azathioprine 50 mg tablet 50 mg PO BID Discontinued lisinopril 10 mg tablet 10 mg PO DAILY Discharge Orders: Discharge Order (Routine); Ordered 09/30/23 Ordered By: Ami Umaña Diet: Regular diet Activity on Discharge: As tolerated Stand Alone Forms: Patient Portal Discharge page, Community Support Care Plan Goals: Maintain mood and safe behaviors Take medications as prescribed Practice coping skills Continue with outpatient providers and reach out to them as needed Health Concerns: Mood stability and behaviors Follow up with outpatient providers regarding Follow up with outpatient providers regarding SLE Plan of Treatment: Follow up with your PCP, psychiatric provider and other outpatient providers regarding above concerns Take medications as prescribed Assessment: Patient was interviewed prior to discharge and found to be fully oriented and without any SI or HI. Patient has insight and demonstrates good judgment in terms of wanting to pursue treatment. Patient is not in imminent risk of harm to self or others and has a safety plan that includes presenting to the closest ER or calling 911 if feeling unsafe. Patient has been observed closely by nursing and unit staff throughout admission; patient has not engaged in any behaviors that suggest dangerousness to self or others and has demonstrated appropriate behaviors and impulse control. Discharge Date/Time: 09/30/23 10:06
== END 2023-09-30 10:06 | disposition home or self-care (01) | DRG 566 ==
LOC: HO.ED 09-26 20:18 → HO.PADLT16 09-26 20:31
PROVIDERS: Emergency Medicine; Obstetrics & Gynecology; Admitting Provider Psychiatry & Neurology Psychiatry; Emergency Provider Emergency Medicine; Responsible Provider Registered Nurse; Visit Provider Psychiatry & Neurology Psychiatry
DX: O99.341 Other mental disorders complicating pregnancy, first trimester (principal); M32.14 Glomerular disease in systemic lupus erythematosus; R45.851 Suicidal ideations; I10 Essential (primary) hypertension; O99.891 Other specified diseases and conditions complicating pregnancy; O10.911 Unspecified pre-existing hypertension complicating pregnancy, first trimester; F32.9 Major depressive disorder, single episode, unspecified; Z3A.01 Less than 8 weeks gestation of pregnancy; Z79.624 Long term (current) use of inhibitors of nucleotide synthesis; Z79.899 Other long term (current) drug therapy
CPT/HCPCS: 0353U; 36415; 80048; 80053; 80061; 80076; 80143; 80179; 80307; 81001; 81025; 82607; 82746; 83036; 83735; 84439; 84443; 84484; 84702; 85025; 85610; 86780; 86803; 87086; 87147; 87340; 87389; 87480; 87510; 87635; 87660; 93005; 99285; S9485

== ENCOUNTER → 2023-09-26 20:02 | Outpatient (BNV) | payer OTHER, SELFPAY | PROVIDERS: Admitting Provider Psychiatry & Neurology Psychiatry; Emergency Provider Emergency Medicine; Responsible Provider Registered Nurse; Visit Provider Registered Nurse | DX: F33.2 Major depressive disorder, recurrent severe without psychotic features (principal) | CPT/HCPCS: 99231 ==

== ENCOUNTER → 2023-09-26 20:02 | Outpatient (BNV) | payer OTHER, SELFPAY | PROVIDERS: Admitting Provider Psychiatry & Neurology Psychiatry; Emergency Provider Emergency Medicine; Responsible Provider Registered Nurse; Visit Provider Psychiatry & Neurology Psychiatry | DX: F32.2 Major depressive disorder, single episode, severe without psychotic features (principal) | CPT/HCPCS: 90792; 99232; 99238 ==

== ENCOUNTER → 2023-09-26 20:02 | Outpatient (BNV) | payer OTHER, SELFPAY | PROVIDERS: Admitting Provider Psychiatry & Neurology Psychiatry; Emergency Provider Emergency Medicine; Responsible Provider Registered Nurse; Visit Provider Obstetrics & Gynecology | DX: Z34.90 Encounter for supervision of normal pregnancy, unspecified, unspecified trimester (principal); M32.9 Systemic lupus erythematosus, unspecified | CPT/HCPCS: 99233 ==

== ENCOUNTER 2024-01-15 18:20 | Emergency (ER) | payer OTHER, SELFPAY ==
[2024-01-15 18:27] VITALS: BP 125/78; PULSE 107; RESP 20; TEMP 36.8; O2SAT 99; BMI 27.4
--- NOTE | 2024-01-15 18:32 | ED.URI ---
HPI - URI/Sore Throat General Chief Complaint: Upper Respiratory Symptoms Stated Complaint: Fever Time Seen by Provider: 01/15/24 18:31 Source: patient Mode of arrival: ambulatory Limitations: no limitations History of Present Illness HPI Narrative: Patient is a 23-year-old female presents emergency department for evaluation of tactile fever, intermittent productive cough, body aches chest pain reproducible with cough and deep inspiration bilateral sinus pressure, insomnia. Symptom onset 4 days ago, denies known sick contacts. Related Data Home Medications Medication Instructions Recorded Confirmed azathioprine 50 mg tablet 50 mg PO BID 09/25/23 09/26/23 Previous Rx's Medication Instructions Recorded fluoxetine 10 mg capsule 10 mg PO DAILY 30 days #30 caps 09/29/23 metronidazole 500 mg tablet 500 mg PO BID 4 days #8 tabs 09/29/23 Allergies Allergy/AdvReac Type Severity Reaction Status Date / Time banana [BANANA] Allergy Intermediate ITCHING Verified 09/25/23 18:56 tree nut [TREE NUT] Allergy Intermediate Hives Verified 09/25/23 18:56 cat dander Allergy Difficulty Verified 09/25/23 18:56 Breathing grape Allergy Itching Verified 09/25/23 18:56 latex Allergy Hives Verified 09/25/23 18:56 strawberry Allergy Itching Verified 09/25/23 18:56 metoclopramide [From Reglan] AdvReac Anxiety Verified 09/25/23 18:56 NSAIDS (Non-Steroidal AdvReac Unknown Verified 09/25/23 18:56 Anti-Inflamma Review of Systems Review of Systems: Yes all other systems are reviewed and are negative PMFSH Past Medical History Attestation statement: The following information was validated with the patient. Source: old records reviewed Medical History Screen for STD (sexually transmitted disease) Elevated serum hCG Suicide ideation Anxiety and depression Hypertension SLE (systemic lupus erythematosus) Anxiety and depression Social History Social History Household Members: Children Household Members Other:: autistic son who is mute Housing: Apartment Do you presently have visiting nurse or other home services: No Alcohol intake: current Alcohol intake frequency: a few times a week Patient Tobacco Use Status: Never used Tobacco e-Cigarette/Vaping Use: Currently Using Second Hand Smoke Exposure: No Substance Use Type: Marijuana Advance Directives: No Advance Directives Information Provided: No service: No Sexual orientation: Straight/Heterosexual Physical Exam Vital Signs: Vital Signs: Last Vital Signs Temp 98.3 F 01/15/24 18:27 Pulse 107 H 01/15/24 18:27 Resp 20 01/15/24 18:27 BP 125/78 01/15/24 18:27 Pulse Ox 99 01/15/24 18:27 O2 Del Method Room Air 01/15/24 18:27 BMI result Body Mass Index 27.4 Appearance: Alert.?Oriented to person, place and time. No acute distress.?Normal affect. Eyes: Pupils equal, round and reactive to light.? ENT: TM normal bilaterally. Pharynx normal.?? Neck: Normal inspection.? Neck supple.??No cervical adenopathy CVS: Heart sounds normal. Normal heart rate and rhythm.? Pulses normal.?? Respiratory: No respiratory distress.? Lung sounds clear to auscultation bilaterally?? Abdomen: Soft and non-tender. Normoactive bowel sounds. Skin: Skin warm and dry.? Normal skin color.? ? Extremities: No lower extremity edema.? Neuro: Moves all extremities spontaneously. Sensation intact bilaterally. No motor deficits. Ambulates with normal steady gait. Medical Decision Making Medical Decision Making [facility] Narrative: Patient is a 23-year-old female with past medical history of depression, hypertension, SLE, presenting for evaluation of upper respiratory symptoms. Influenza a testing is positive, most likely etiology for symptoms. Symptom onset was 4 days ago, would be outside of window for initiating Tamiflu. At this time history and physical exam not consistent with pneumonia. Well-appearing, nontoxic, afebrile, mild tachycardia no tachypnea/hypoxia. Speaking clear full sentences, ambulatory with steady gait. Discussed conservative treatment including rest, hydration, Tylenol/ibuprofen as needed for fever and body aches, saline nasal spray, humidifier, [id number] cold medication. Advised to follow-up with primary care provider as needed, discussed reasons to return back to the emergency department. All questions were answered. Patient discharged home in stable condition. Differential Diagnosis Differential Diagnoses: The differential diagnosis associated with the presentation includes ( See narrative above) Admission/Observation Consideration of admission/observation: Escalation of care including admission/observation considered ( see narrative above) Lab Data [facility] Lab Attestation statement: I reviewed the patient's lab results. ( see narrative above) Labs: Lab Results 01/15/24 Range/Units 18:33 Influenza Type A (PCR) POSITIVE A (Negative) Influenza Type B (PCR) NEGATIVE (Negative) RSV RNA Qual (PCR) NEGATIVE (Negative) SARS-CoV-2 RNA (RT-PCR) NEGATIVE (Negative) External Record Review External record reviewed: Outpatient record Prescription Management I considered prescription management with: Pain Medication ( acetaminophen/ibuprofen) and Antiviral (See narrative above) Discharge Plan Discharge Clinical Impression: Influenza A Patient Disposition: Home, Self-Care Instructions: Influenza (ED) Additional Instructions: Be sure to rest, stay well hydrated drinking plenty of fluids, eat small frequent meals. Tylenol/ibuprofen can be used as needed for fever/pain. [id number] cold medications may be helpful as well for symptoms. Saline nasal spray, humidifier may be helpful for nasal congestion. You may return to the emergency department with any new or worsening symptoms or concerns. Follow-up with your primary care provider as needed. Should remain out of school/ work until symptoms have resolved and have been without a fever for 24 hours without the use of Tylenol or ibuprofen. Prescriptions: No Action azathioprine 50 mg tablet 50 mg PO BID fluoxetine 10 mg Capsule 10 mg PO DAILY 30 Days Qty: 30 0RF metronidazole 500 mg Tablet 500 mg PO BID 4 Days Qty: 8 0RF Referrals: Physician,Unknown J [Primary Care Provider] -
[2024-01-15 19:16] LABS: Influenza A PCR POSITIVE (Negative); Influenza B PCR NEGATIVE (Negative); Resp Syncy Virus RNA Qual PCR NEGATIVE (Negative); SARS COV2 PCR INHOUSE NEGATIVE (Negative)
== END 2024-01-15 20:12 | disposition home or self-care (01) ==
PROVIDERS: Emergency Provider Emergency Medicine
DX: J10.1 Influenza due to other identified influenza virus with other respiratory manifestations (principal); R50.9 Fever, unspecified; R05.9 Cough, unspecified; Z11.52 Encounter for screening for COVID-19
CPT/HCPCS: 0241U; 99282; 99283

== ENCOUNTER 2024-06-26 21:52 | Emergency (ER) | payer SELFPAY ==
[2024-06-26 21:57] VITALS: BP 137/98; PULSE 88; RESP 17; TEMP 36.7; O2SAT 99; BMI 26.7
[2024-06-26 22:29] LABS: MANUAL DIFF FLAG NO
[2024-06-26 22:30] LABS: Basophils Absolute Auto 0.1 X10*3/uL (0.0-0.2); Basophils Percent Auto 0.5 % (0-2); Eosinophils Absolute Auto 0.3 X10*3/uL (0.0-0.4); Eosinophils Percent Auto 2.7 % (0-4); Hematocrit 40.2 % (37.0-47.0); Hemoglobin 13.9 g/dl (12.0-16.0); Imm Gran Abs Auto 0.03 X10*3/uL (0.00-0.03); Imm Gran Pct Auto 0.3 % (0.0-0.4); Lymphocytes Absolute Auto 2.4 X10*3/uL (1.2-4.9); Lymphocytes Percent Auto 21.8 % (20-40); Mean Corpuscular HGB Conc 34.6 g/dl (31.0-35.0); Mean Corpuscular Hemoglobin 30.3 pg (27.0-33.0); Mean Corpuscular Volume 87.8 fL (80.0-98.0); Mean Platelet Volume 9.8 fL (9.4-12.3); Monocytes Absolute Auto 0.7 X10*3/uL (0.1-1.2); Monocytes Percent Auto 6.3 % (2-11); Neutrophils Absolute Auto 7.5 x10*3/uL (2.0-8.3); Neutrophils Percent Auto 68.4 % (45-73); Platelet Count 364 X10*3/uL (160-400); Red Blood Count 4.58 X10*6/uL (4.20-5.50); Red Cell Distribution Width 12.6 % (11.0-16.0); White Blood Count 10.9 X10*3/uL (4.8-10.8)
[2024-06-26 22:51] LABS: Alanine Aminotransferase 7 U/L (0-31); Albumin Level 4.2 g/dL (3.5-5.0); Alkaline Phosphatase 75 U/L (39-117); Anion Gap 13 (12-20); Aspartate Amino Transferase 13 U/L (5-31); Bilirubin Total 0.2 mg/dL (0.0-1.0); Blood Urea Nitrogen 11 mg/dL (9-16); Calcium 9.4 mg/dL (8.4-10.2); Carbon Dioxide 28 mmol/L (22-29); Chloride 104 mmol/L (96-108); Creatinine Clr Calc Pharmacy 87.9; Estimated Glomerular Filt Rate > 60; Glucose Random 88 mg/dL (60-115); Lipase 20 U/L (8-78); Sodium 141 mmol/L (135-145); Total Protein 7.4 g/dL (6.5-8.0)
[2024-06-26 22:53] LABS: HCG Quantitative < 2 mIU/mL
[2024-06-26 22:58] LABS: Appearance Urine Cloudy; Color Urine Yellow; Glucose Urine UA Negative (Negative); Leukocyte Esterase Urine Moderate (2+) (Negative); Nitrite Urine Negative (Negative); PH 6.5 (5.0-9.0); Specific Gravity - Urine 1.025 (1.005-1.025); UMIC TRIGGER UACC YES; Urine Blood Negative (Negative); Urine Ketones Trace mg/dL (Negative); Urine Protein 100 (2+) mg/dL (Neg-Trace)
[2024-06-26 23:00] LABS: Bacteria Urine 2+ (None Seen); Hyaline Casts Urine 0-2 /LPF (0-2); RBC Urine 0-2 /HPF (0-2); UACC Culture Trigger YES
[2024-06-26 23:09] VITALS: BP 114/70; PULSE 68; RESP 20; TEMP 36.8; O2SAT 97
--- NOTE | 2024-06-26 23:55 | ED.GENADULT ---
HPI - General Adult General Chief complaint: Abdominal Pain Stated complaint: ?Lupus flare up Time Seen by Provider: 06/26/24 23:28 Source: patient Mode of arrival: ambulatory Limitations: no limitations History of Present Illness ED Provider: lina TEMPLETON narrative: Patient's history of SLE involving skin and joints in the kidney used to be on azathioprine and hydroxychloroquine which she not taking for last several months comes here for last 3 weeks of body aches tiredness no significant joint pain patient is under increased stress and has a poor sleep also no urinary symptoms does have history of constipation complaining of left lower abdominal pain Related Data Home Medications ?Medication ?Instructions ?Recorded ?Confirmed azathioprine 50 mg tablet 50 mg PO BID 09/25/23 09/26/23 fluoxetine 20 mg capsule 20 mg PO DAILY 04/06/24 hydroxychloroquine 200 mg tablet 200 mg PO BID 04/06/24 lisinopril 10 mg tablet 10 mg PO DAILY 04/06/24 Previous Rx's ?Medication ?Instructions ?Recorded metronidazole 500 mg tablet 500 mg PO BID 4 days #8 tabs 09/29/23 cefuroxime axetil 250 mg tablet 250 mg PO BID 7 days #14 tabs 06/27/24 Allergies Allergy/AdvReac Type Severity Reaction Status Date / Time banana [BANANA] Allergy Intermediate ITCHING Verified 06/26/24 22:03 tree nut [TREE NUT] Allergy Intermediate Hives Verified 06/26/24 22:03 cat dander Allergy Difficulty Verified 06/26/24 22:03 Breathing grape Allergy Itching Verified 06/26/24 22:03 latex Allergy Hives Verified 06/26/24 22:03 strawberry Allergy Itching Verified 06/26/24 22:03 metoclopramide [From Reglan] AdvReac Anxiety Verified 06/26/24 22:03 NSAIDS (Non-Steroidal AdvReac Unknown Verified 06/26/24 22:03 Anti-Inflamma Review of Systems Review of Systems: Yes all other systems are reviewed and are negative PMFSH Past Medical History Medical History Joint pain Screen for STD (sexually transmitted disease) Elevated serum hCG Suicide ideation Hypertension SLE (systemic lupus erythematosus) Anxiety and depression Surgical History H/O foot surgery Family History Family History Family/Other Family history of lupus erythematosus Social History Social History Household Members: Children Household Members Other:: autistic son who is mute Housing: Apartment Do you presently have visiting nurse or other home services: No Alcohol intake: current Alcohol intake frequency: a few times a week Patient Tobacco Use Status: Never used Tobacco e-Cigarette/Vaping Use: Currently Using Second Hand Smoke Exposure: No Substance Use Type: Marijuana Advance Directives: No Advance Directives Information Provided: Yes Do you have a plan to hurt others: No Plan service: No Sexual orientation: Straight/Heterosexual Physical Exam ED Vital Signs: Vital Signs - 24 hr 06/26/24 21:57 06/26/24 23:09 Temperature 98.0 F 98.3 F Pulse Rate 88 68 Respiratory Rate 17 20 Blood Pressure 137/98 H 114/70 Pulse Oximetry 99 97 Oxygen Delivery Method Room Air Room Air BMI result Body Mass Index 26.7 Appearance: Alert. Oriented X3. No acute distress. Eyes: PERRLA, No Nystagmus ENT: Pharynx normal. Oral Mucosa moist Neck: Normal inspection. Neck supple. CVS: Normal heart rate and rhythm. Pulses normal. Respiratory: No respiratory distress. Equal air entry bilateral, no wheezing/rales/rhonchi Abdomen: Soft and mild discomfort left mid abdomen no guarding no rebound tenderness Bowel sounds are present, no mass palpable, no CVA tenderness Skin: Skin warm and dry. Normal skin color. Normal skin turgor. Extremities: No lower extremity edema. No calf tenderness no synovial thickening noticed Neuro: Oriented X 3. No motor deficit. No sensory deficit.No cerebellar signs , cranial nerves II-XII intact Medications Administered Discontinued Medications Generic Name Dose Route Start Last Admin Trade Name Freq PRN Reason Stop Dose Admin Cefuroxime Axetil 250 mg 06/26/24 23:54 06/27/24 00:15 Cefuroxime Axetil 250 Mg Tablet PO 06/26/24 23:55 250 mg ONCE ONE Administration Sodium Chloride 1,000 mls @ 999 mls/hr 06/26/24 23:53 06/27/24 00:12 Ns IV 06/27/24 00:53 999 mls/hr .Q1H1M ONE Administration Magnesium Hydroxide 30 ml 06/26/24 23:54 06/27/24 00:15 Milk Of Magnesia 30 Ml Oral.Susp PO 06/26/24 23:55 30 ml ONCE ONE Administration Medical Decision Making Medical Decision Making [facility] Narrative: Patient with generalized body aches no urinary symptoms but urine showed WBCs CRP is negative labs are stable unlikely flare-up of lupus will prescribe Ceftin for UTI advised patient to continue her azathioprine and hydroxy chloroquine and follow with salvage engineer Differential Diagnosis Differential Diagnoses: The differential diagnosis associated with the presentation includes Viral syndrome/lupus flare-up/UTI Lab Data [facility] Lab Attestation statement: I reviewed the patient's lab results. 06/26/24 22:22 06/26/24 22:22 Labs: Lab Results 06/26/24 06/26/24 06/26/24 Range/Units 22:22 22:44 23:57 WBC 10.9 H (4.8-10.8) X10*3/uL RBC 4.58 (4.20-5.50) X10*6/uL Hgb 13.9 (12.0-16.0) g/dl Hct 40.2 (37.0-47.0) % MCV 87.8 (80.0-98.0) fL MCH 30.3 (27.0-33.0) pg MCHC 34.6 (31.0-35.0) g/dl RDW 12.6 (11.0-16.0) % Plt Count 364 (160-400) X10*3/uL MPV 9.8 (9.4-12.3) fL Immature Gran % (Auto) 0.3 (0.0-0.4) % Neut % (Auto) 68.4 (45-73) % Lymph % (Auto) 21.8 (20-40) % Tama % (Auto) 6.3 (2-11) % Eos % (Auto) 2.7 (0-4) % Baso % (Auto) 0.5 (0-2) % Lymph # (Auto) 2.4 (1.2-4.9) X10*3/uL Tama # (Auto) 0.7 (0.1-1.2) X10*3/uL Eos # (Auto) 0.3 (0.0-0.4) X10*3/uL Baso # (Auto) 0.1 (0.0-0.2) X10*3/uL Abs Immat Gran (auto) 0.03 (0.00-0.03) X10*3/uL Absolute Neuts (auto) 7.5 (2.0-8.3) x10*3/uL Absolute Nucleated RBC 0.000 (0.0-0.012) X10*3/uL Nucleated RBC % (auto) 0.0 (0.0-0.2) /100WBC Sodium 141 (135-145) mmol/L Potassium 4.0 (3.3-5.1) mmol/L Chloride 104 (96-108) mmol/L Carbon Dioxide 28 (22-29) mmol/L Anion Gap 13 (12-20) BUN 11 (9-16) mg/dL Creatinine 0.90 (0.5-1.4) mg/dL Estim Creat Clear Calc 87.9 Estimated GFR > 60 Random Glucose 88 (60-115) mg/dL Calcium 9.4 (8.4-10.2) mg/dL Total Bilirubin 0.2 (0.0-1.0) mg/dL AST 13 (5-31) U/L ALT 7 (0-31) U/L Alkaline Phosphatase 75 (39-117) U/L C-Reactive Protein 0.39 (< or = 0.50) mg/dL Total Protein 7.4 (6.5-8.0) g/dL Albumin 4.2 (3.5-5.0) g/dL Lipase 20 (8-78) U/L Beta HCG, Quant < 2 mIU/mL Urine Color Yellow Urine Appearance Cloudy Urine pH 6.5 (5.0-9.0) Ur Specific [place] 1.025 (1.005-1.025) Urine Protein 100 (2+) H (Neg-Trace) mg/dL Urine Glucose (UA) Negative (Negative) mg/dL Urine Ketones Trace (Negative) mg/dL Urine Blood Negative (Negative) Urine Nitrite Negative (Negative) Ur Leukocyte Esterase Moderate (2+) H (Negative) Urine RBC 0-2 (0-2) /HPF Urine WBC 11-20 H (0-5) /HPF Ur Squamous Epith Cells 3-5 (0-2) /HPF Urine Bacteria 2+ (None Seen) Hyaline Casts 0-2 (0-2) /LPF COVID-19 ([facility]) Negative (Negative) COVID-19 Clin Com See Note Discharge Plan Discharge Clinical Impression: UTI (urinary tract infection), Lupus (systemic lupus erythematosus) Patient Disposition: Home, Self-Care Instructions: Urinary Tract Infection in Women (DC), Lupus Erythematosus (DC) Additional Instructions: Continue medications as prescribed for your lupus Ceftin twice a day for 7 days for UTI Drink plenty of fluids Follow with your salvage engineer Prescriptions: New cefuroxime axetil 250 mg tablet 250 mg PO BID 7 Days Qty: 14 0RF No Action azathioprine 50 mg tablet 50 mg PO BID metronidazole 500 mg Tablet 500 mg PO BID 4 Days Qty: 8 0RF fluoxetine 20 mg capsule 20 mg PO DAILY hydroxychloroquine 200 mg tablet 200 mg PO BID lisinopril 10 mg tablet 10 mg PO DAILY Print Language: Nauruan
[2024-06-27] MEDS: 0.9 % Sodium Chloride 1,000 ML 999 ML IV (00:12)
[2024-06-27] MEDS: Milk of Magnesia 30 ML ORAL.SUSP PO (00:15)
[2024-06-27] MEDS: cefuroxime axetiL 250 MG TABLET PO (00:15)
[2024-06-27 00:34] LABS: COVID-19 Test Negative (Negative); IDNOW Serial# 08D9AD1C
[2024-06-27 00:54] LABS: C Reactive Protein 0.39 mg/dL (< or = 0.50)
[2024-06-27 02:12] VITALS: BP 127/73; PULSE 69; RESP 18; TEMP 36.8; O2SAT 96
[2024-06-27 02:14] VITALS: BP 127/73; PULSE 69; RESP 18; TEMP 36.8; O2SAT 96
== END 2024-06-27 01:50 | disposition home or self-care (01) ==
PROVIDERS: Emergency Provider Internal Medicine; PCP Internal Medicine
DX: N39.0 Urinary tract infection, site not specified (principal); M32.9 Systemic lupus erythematosus, unspecified; R53.83 Other fatigue; R10.32 Left lower quadrant pain; I10 Essential (primary) hypertension; Z79.899 Other long term (current) drug therapy
CPT/HCPCS: 36415; 80053; 81001; 83690; 84702; 85025; 86140; 87086; 87635; 99283; 99284